=== PATIENT | female | born 1940 | race Caucasian/White ===

== ENCOUNTER 2018-05-07 13:47 | Outpatient (CLI) | payer MEDICARE, BC | END 2018-05-07 13:48 | disposition home or self-care (01) | LOC: BICMAMMO 13:47 | PROVIDERS: ATTEND Internal Medicine | DX: Z12.31 Encounter for screening mammogram for malignant neoplasm of breast (principal) | CPT/HCPCS: 77063; 77067 ==

== ENCOUNTER 2019-01-01 14:15 | Emergency (ER) | payer BC, MEDICARE ==
[~2019-01-01 14:15] MED LIST: ISOVUE-370 76%-LOCM 1 ML ONE
[2019-01-01] MEDS ORDERED: Fentanyl 100 MCG/2 ML VIAL ONE ×2 (16:17→16:50)
--- NOTE | 2019-01-01 16:58 | RAD ---
XR Shoulder Lt 3 View STANDARD HISTORY: Injury to shoulder COMPARISON: None. FINDINGS: The bones are demineralized. There is a minimally displaced distal clavicle fracture. Mild arthritic changes of the acromioclavicular and glenohumeral joints are noted. IMPRESSION: Distal clavicle fracture located just proximal to the AC joint.
[2019-01-01 17:01] LABS: #Eosinphils 0.1 thou/uL (0.0-0.7); #Lymphocytes 1.4 thou/uL (1.20-3.40); #Monocytes 0.8 thou/uL (0.11-0.59); #Neutrophils 10.3 thou/uL (1.40-6.50); %Basophils 0.2 % (0.0-1.0); %Eosinophils 0.5 % (0.0-10.0); %Lymphocytes 10.8 % (21.0-51.0); %Monocytes 6.1 % (0.0-10.0); %Neutrophils 82.4 % (42.0-75.0); Hemoglobin 14.3 g/dL (12.0-16.0); Mean Corpuscular HGB CONC 33.4 g/dL (32.0-36.0); Mean Corpuscular Hemoglobin 31.5 pg (27.0-31.0); Mean Corpuscular Volume 94.3 fL (78.0-98.0); Platelet Count 269 thou/uL (130-400); RBC Distribution Width 11.3 % (11.5-14.5); Red Blood Cell (RBC) Count 4.53 mill/uL (4.20-5.40); White Blood Cell (WBC) Count 12.5 thou/uL (4.8-10.8)
--- NOTE | 2019-01-01 17:15 | CT ---
CT BRAIN WITHOUT CONTRAST: Date: 01/01/19 INDICATION: History of fall with left-sided body pain. FINDINGS: There is a left frontal scalp contusion. There is mild chronic small vessel white matter ischemic change. No acute infarct, hemorrhage, or hydrocephalus is evident. Skull intact. Mastoid air cells on the lef t are clear. There is partial fusion of the right mastoid air cells. IMPRESSION: 1. Left frontal scalp contusion. 2. No acute intracranial abnormality. 3. Mild chronic small vessel white matter ischemic change. 4. Partial effusion of the right mastoid air cells. POS: BH
[2019-01-01 17:20] LABS: Albumin 4.1 g/dL (3.4-4.8)
[2019-01-01 17:22] LABS: Calcium 9.3 mg/dL (7.8-10.44); Chloride 99 mmol/L (98-107); Potassium 3.4 mmol/L (3.5-5.1); Sodium 135 mmol/L (136-145)
--- NOTE | 2019-01-01 17:22 | CT ---
CT CHEST AND ABDOMEN AND PELVIS WITH IV CONTRAST: Date: 01/01/19 INDICATION: History of fall with left-sided abdominal pain. FINDINGS: No focal contusion or pleural effusion is evident. There is a small, subcentimeter, linear nodule wit hin the right middle lobe adjacent to the right major fissure. There are areas of subsegmental volume loss involving both lower lobes. No pneumothorax is evident. There is mild ectasia of the ascending aorta measuring 2.8 cm. No definite solid organ injury is seen within the abdomen or pelvis. Gallbladder surgically absent. Unopacified large and small bowel are unremarkable appearing. No definite displaced rib fracture is evident. Mild superior end plate compression deformity of L2 is stable to comparison lumbar spine radiograph dated 12/08/14. There is scattered degenerative and ost eoarthritic change. IMPRESSION: 1. No definite acute traumatic injury seen involving chest, abdomen, or pelvis. 2. Small, subcentimeter, subpleural pulmonary nodule within the right lower lobe adjacent to the rig ht major fissure. 3. Remote appearing superior end plate compression deformity of L2. POS: BH
[2019-01-01 17:23] LABS: Globulin 2.8 g/dL (2.4-3.5); Glucose 100 mg/dL (83-110); Protein, Total 6.9 g/dL (6.0-8.3)
[2019-01-01 17:25] LABS: Anion Gap 15 mmol/L (10-20); Bilirubin, Total 0.5 mg/dL (0.2-1.2); Carbon Dioxide 24 mmol/L (23-31)
[2019-01-01 17:26] LABS: Alkaline Phosphatase 55 U/L (40-150)
[2019-01-01 17:27] LABS: BUN (Urea Nitrogen) 28 mg/dL (9.8-20.1); Calc. Creatinine Clearance 0 mL/min (70-130); Estimated GFR-MDRD 69
[2019-01-01 17:28] LABS: AST (SGOT) 41 U/L (5-34)
[2019-01-01 17:29] LABS: ALT (SGPT) 33 U/L (8-55)
[2019-01-01] MEDS ORDERED: Orphenadrine Citrate 60 MG/2 ML VIAL IM SCH (18:45)
[2019-01-01] MEDS ORDERED: HYDROcodone/Acetaminophen 5/325 mg Tablet ONE (21:51)
== END 2019-01-01 22:48 ==
LOC: ERS 14:15
DX: S42.032A Displaced fracture of lateral end of left clavicle, initial encounter for closed fracture (principal); S00.83XA Contusion of other part of head, initial encounter; E03.9 Hypothyroidism, unspecified; E78.5 Hyperlipidemia, unspecified; I10 Essential (primary) hypertension; Z79.899 Other long term (current) drug therapy; Z79.82 Long term (current) use of aspirin; W19.XXXA Unspecified fall, initial encounter
CPT/HCPCS: 36415; 70450; 71260; 74177; 80053; 85025; 96372; 96374; J2360; J3010; Q9966

== ENCOUNTER 2019-01-11 23:13 | Inpatient (IN) | payer MEDICARE ==
--- NOTE | 2019-01-11 23:53 | RAD ---
EXAM: Portable supine chest INDICATIONS: UTI, cellulitis, clavicle fracture COMPARISON: 01/11/2019 FINDINGS: Cardiomegaly is stable. Mild vascular engorgement is stable. Interstitial markings are prominent and stable. No infiltrate or acute process. No interval change. IMPRESSION: Stable chest findings
[2019-01-11 23:58] LABS: #Eosinphils 0.1 thou/uL (0.0-0.7); #Lymphocytes 0.4 thou/uL (1.20-3.40); #Monocytes 0.5 thou/uL (0.11-0.59); #Neutrophils 7.2 thou/uL (1.40-6.50); %Basophils 0.1 % (0.0-1.0); %Eosinophils 0.6 % (0.0-10.0); %Lymphocytes 4.9 % (21.0-51.0); %Neutrophils 88.4 % (42.0-75.0); Hemoglobin 11.4 g/dL (12.0-16.0); Mean Corpuscular HGB CONC 33.8 g/dL (32.0-36.0); Mean Corpuscular Volume 94.5 fL (78.0-98.0); Mean Platelet Volume 5.8 fL (7.4-10.4); Platelet Count 347 thou/uL (130-400); Red Blood Cell (RBC) Count 3.56 mill/uL (4.20-5.40); White Blood Cell (WBC) Count 8.2 thou/uL (4.8-10.8)
[2019-01-12 00:28] LABS: ALT (SGPT) 188 U/L (8-55); AST (SGOT) 286 U/L (5-34); Albumin 2.5 g/dL (3.4-4.8); Alkaline Phosphatase 122 U/L (40-150); Anion Gap 11 mmol/L (10-20); BUN (Urea Nitrogen) 15 mg/dL (9.8-20.1); Bilirubin, Total 0.3 mg/dL (0.2-1.2); CK (CPK) 17 U/L (29-168); Calc. Creatinine Clearance 0 mL/min (70-130); Calcium 7.3 mg/dL (7.8-10.44); Carbon Dioxide 27 mmol/L (23-31); Chloride 102 mmol/L (98-107); Estimated GFR-MDRD Greater than 90; Glucose 182 mg/dL (83-110); Potassium 3.4 mmol/L (3.5-5.1); Protein, Total 4.5 g/dL (6.0-8.3); Sodium 137 mmol/L (136-145)
[2019-01-12] MEDS ORDERED: Acetaminophen 325 MG TAB ONE (02:08)
[2019-01-12] MEDS ORDERED: Ondansetron ODT 4 MG TAB SL PRN (02:51)
[2019-01-12] MEDS ORDERED: Acetaminophen 325 MG TAB PO PRN ×2 (02:51→05:45)
[2019-01-12 03:25] VITALS: BMI 28.9
[2019-01-12] MEDS ORDERED: diphenhydrAMINE 25 MG CAP PO PRN (05:45)
[2019-01-12] MEDS ORDERED: Loperamide HCl 2 MG CAP PO PRN (05:45)
[2019-01-12] MEDS ORDERED: Bisacodyl 10 MG SUPP PR PRN (05:45)
[2019-01-12] MEDS ORDERED: Ondansetron ODT 4 MG TAB PO PRN (05:45)
[2019-01-12] MEDS ORDERED: traZODone HCl 50 MG TAB PO PRN (05:45)
[2019-01-12] MEDS ORDERED: Diabetic Tussin 200 MG/10 ML UDCUP PO PRN (05:45)
[2019-01-12] MEDS ORDERED: cloNIDine 0.1 MG TAB PO PRN (05:45)
[2019-01-12] MEDS ORDERED: tiZANidine HCl 4 MG TAB PO PRN (05:45)
[2019-01-12] MEDS ORDERED: Milk Of Magnesia 30 ML UDCUP PO PRN (05:45)
[2019-01-12] MEDS ORDERED: Cepastat Lozenges 1 LOZ PO PRN (05:45)
[2019-01-12] MEDS ORDERED: cefTRIAXone\\ROCEPHIN 1 GM in Sodium Chloride 0.9% 100 ML IVPB SCH (06:00)
[2019-01-12] MEDS: Levothyroxine Sodium 100 MCG TAB PO SCH (06:07)
[2019-01-12] MEDS: traMADol HCl 50 MG TAB PO PRN (06:14)
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
[2019-01-12] MEDS ORDERED: Hydrochlorothiazide 25 MG TAB PO SCH (09:00)
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
[2019-01-12] MEDS: Acetaminophen/Codeine 30-300mg Tablet PO SCH ×4 (09:51→21:30)
[2019-01-12] MEDS: tiZANidine HCl 4 MG TAB PO SCH (09:54)
[2019-01-12] MEDS: Aspirin 81 mg Enteric Coated Tablet PO SCH (09:54)
[2019-01-12] MEDS: Famotidine 20 MG TAB PO SCH (09:55)
[2019-01-12] MEDS: Calcium Carbonate + Vit D 1 TAB PO SCH ×2 (09:55→21:30)
[2019-01-12] MEDS: Multivitamin W/ Minerals 1 TAB PO SCH (09:55)
[2019-01-12] MEDS: Enoxaparin Sodium 40 MG/0.4 ML SYRINGE SC SCH (10:01)
[2019-01-12] MEDS: Polyethylene Glycol 3350 17 GM Packet PO SCH (10:04)
[2019-01-12 10:07] LABS: ALT (SGPT) 242 U/L (8-55); AST (SGOT) 270 U/L (5-34); Albumin 2.8 g/dL (3.4-4.8); Alkaline Phosphatase 175 U/L (40-150); Bilirubin, Direct 0.2 mg/dL (0.1-0.3); Bilirubin, Total 0.2 mg/dL (0.2-1.2); Protein, Total 5.9 g/dL (6.0-8.3)
[2019-01-12] MEDS ORDERED: ISOVUE-370 76%-LOCM 1 ML ONE (13:03)
[2019-01-12] MEDS ORDERED: Potassium Chloride 20 MEQ TAB PO SCH (13:15)
[2019-01-12] MEDS ORDERED: Vancomycin HCl 1.25 GM in Sodium Chloride 0.9% 250 ML 250 ML IVPB SCH (14:00)
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
[2019-01-12] MEDS: Oxacillin 2 GM in Sodium Chloride 0.9% 100 ML IVPB SCH ×2 (17:46→21:31)
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
[2019-01-12] MEDS: Ondansetron PF 4 MG/2 ML Vial IVP PRN (18:06)
[2019-01-12] MEDS: Atorvastatin Calcium 10 MG TAB PO SCH (21:30)
[2019-01-12] MEDS: Lidocaine Patch Removal 1 EACH TOP SCH (21:31)
[2019-01-13] MEDS: Oxacillin 2 GM in Sodium Chloride 0.9% 100 ML IVPB SCH ×5 (01:23→18:30)
[2019-01-13] MEDS: Levothyroxine Sodium 100 MCG TAB PO SCH (05:20)
[2019-01-13 06:16] LABS: #Eosinphils 0.3 thou/uL (0.0-0.7); #Lymphocytes 1.4 thou/uL (1.20-3.40); #Neutrophils 7.7 thou/uL (1.40-6.50); %Basophils 0.2 % (0.0-1.0); %Eosinophils 2.7 % (0.0-10.0); %Monocytes 9.2 % (0.0-10.0); Hemoglobin 11.2 g/dL (12.0-16.0); Mean Corpuscular HGB CONC 32.9 g/dL (32.0-36.0); Mean Corpuscular Hemoglobin 31.5 pg (27.0-31.0); Mean Corpuscular Volume 95.6 fL (78.0-98.0); Mean Platelet Volume 6.1 fL (7.4-10.4); Platelet Count 414 thou/uL (130-400); RBC Distribution Width 11.3 % (11.5-14.5); Red Blood Cell (RBC) Count 3.56 mill/uL (4.20-5.40); White Blood Cell (WBC) Count 10.3 thou/uL (4.8-10.8)
[2019-01-13 06:37] LABS: ALT (SGPT) 156 U/L (8-55); AST (SGOT) 115 U/L (5-34); Albumin 2.4 g/dL (3.4-4.8); Alkaline Phosphatase 187 U/L (40-150); Bilirubin, Direct 0.2 mg/dL (0.1-0.3); Bilirubin, Total 0.3 mg/dL (0.2-1.2); Protein, Total 5.4 g/dL (6.0-8.3)
[2019-01-13 06:47] LABS: Anion Gap 11 mmol/L (10-20); BUN (Urea Nitrogen) 10 mg/dL (9.8-20.1); Calc. Creatinine Clearance 86 mL/min (70-130); Calcium 8.6 mg/dL (7.8-10.44); Carbon Dioxide 26 mmol/L (23-31); Chloride 104 mmol/L (98-107); Estimated GFR-MDRD Greater than 90; Glucose 89 mg/dL (83-110); Potassium 4.2 mmol/L (3.5-5.1); Sodium 137 mmol/L (136-145)
[2019-01-13] MEDS ORDERED: Lidocaine 5% Patch TD SCH (09:00)
[2019-01-13] MEDS: Aspirin 81 mg Enteric Coated Tablet PO SCH (09:46)
[2019-01-13] MEDS: Multivitamin W/ Minerals 1 TAB PO SCH (09:46)
[2019-01-13] MEDS: Famotidine 20 MG TAB PO SCH (09:46)
[2019-01-13] MEDS: tiZANidine HCl 4 MG TAB PO SCH ×2 (09:46→21:15)
[2019-01-13] MEDS: Calcium Carbonate + Vit D 1 TAB PO SCH ×2 (09:46→21:15)
[2019-01-13] MEDS: Enoxaparin Sodium 40 MG/0.4 ML SYRINGE SC SCH (09:49)
[2019-01-13] MEDS: Polyethylene Glycol 3350 17 GM Packet PO SCH (09:49)
[2019-01-13] MEDS: Lidocaine 5% Patch TD SCH (09:49)
[2019-01-13] MEDS: Acetaminophen/Codeine 30-300mg Tablet PO SCH ×4 (09:52→21:21)
--- NOTE | 2019-01-13 11:46 | PDOC.HOSPP ---
- Subjective Subjective: Patient seen and examined. No new complaints. No overnight events - Objective Vital Signs & Weight: Vital Signs (12 hours) Temp Pulse Resp BP Pulse Ox 01/13/19 11:07 100.3 F H 76 18 112/71 93 L 01/13/19 07:21 99.5 F 89 16 146/82 H 98 01/13/19 04:20 98.8 F 91 16 139/83 99 Weight Weight 148 lb 2.41 oz Most Recent Monitor Data Heart Rate from ECG 82 NIBP 131/72 NIBP BP-Mean 91 Respiration from ECG 24 SpO2 98 I&O: 01/12/19 01/13/19 01/14/19 06:59 06:59 06:59 Intake Total 500 1800 Output Total 400 1900 Balance 100 -100 Result Diagrams: 01/13/19 05:51 01/13/19 05:51 ROS - Review of Systems All systems: All other ROS were reviewed and found negative. ENT: denies: ear pain, ear discharge, nose pain, nose discharge, nose congestion , mouth pain, mouth swelling, throat pain, throat swelling, other Respiratory: denies: cough, dry, shortness of breath, hemoptysis, SOB with excertion, pleuritic pain, sputum, wheezing, other Cardiovascular: denies: chest pain, palpitations, orthopnea, paroxysmal noc. dyspnea, edema, light headedness, other Gastrointestinal: denies: nausea, vomitting, abdominal pain, diarrhea, constipation, melena, hematochezia, other Genitourinary: denies: dysuria, frequency, incontinence, hematuria, retention, other Musculoskeletal: denies: neck pain, shoulder pain, arm pain, back pain, hand pain, leg pain, foot pain, other - Medication Medications: Active Medications Generic Name Dose Route Start Last Admin Trade Name Freq PRN Reason Stop Dose Admin Acetaminophen/Codeine Phosphate 1 tab 01/12/19 09:00 01/13/19 09:52 Tylenol #3 PO 1 tab QID GWEN Administration Aspirin 81 mg 01/12/19 09:00 01/13/19 09:46 Ecotrin PO 81 mg DAILY GWEN Administration Atorvastatin Calcium 10 mg 01/12/19 21:00 01/12/19 21:30 Lipitor PO 10 mg HS GWEN Administration Calcium/Vitamin D 1 tab 01/12/19 09:00 01/13/19 09:46 Caltrate 600 + Vit D PO 1 tab BID GWEN Administration Enoxaparin Sodium 40 mg 01/12/19 09:00 01/13/19 09:49 Lovenox SC 40 mg 0900 GWEN Administration Famotidine 20 mg 01/12/19 09:00 01/13/19 09:46 Pepcid PO 20 mg DAILY GWEN Administration Oxacillin Sodium 2 gm/ Sodium 100 mls @ 200 mls/hr 01/12/19 17:00 01/13/19 09 :42 Chloride IVPB 100 mls Q4HR GWEN Administration Iron/Minerals/Multivitamins 1 tab 01/12/19 09:00 01/13/19 09:46 Theragran M PO 1 tab DAILY GWEN Administration Levothyroxine Sodium 100 mcg 01/12/19 06:00 01/13/19 05:20 Synthroid PO 100 mcg 0600 GWEN Administration Lidocaine 1 patch 01/13/19 09:00 01/13/19 09:49 Lidoderm 5% Patch TD 1 patch DAILY GWEN Administration Miscellaneous Medication 1 each 01/12/19 21:00 01/12/19 21:31 Lidocaine Patch Removal TOP 1 each 2100 GWEN Administration Ondansetron HCl 4 mg 01/12/19 02:51 01/12/19 18:06 Zofran IVP 01/17/19 13:00 4 mg Q6H PRN Administration Nausea/Vomiting Polyethylene Glycol 17 gm 01/12/19 09:00 01/13/19 09:49 Miralax PO 17 gm DAILY GWEN Administration Tramadol HCl 50 mg 01/12/19 05:45 01/12/19 06:14 Ultram PO 50 mg Q4HR PRN Administration Pain - Exam NAD, awake alert Eye: PERRL, anicteric sclera ENT: normocephalic atraumatic, no oropharyngeal lesions Neck: supple, symmetric, no JVD Heart: RRR, no murmur, no gallops Respiratory: no wheezes, no rales, no ronchi Gastrointestinal: soft, non-tender, non-distended Extremities: no cyanosis, no clubbing, no edema Skin: normal turgor Neurological: CN's grossly intact, normal sensation to touch Musculoskeletal: normal tone, normal strength, no muscle wasting Psychiatric: normal affect, normal behavior Hosp A/P (1) Abnormal LFTs Code(s): R94.5 - ABNORMAL RESULTS OF LIVER FUNCTION STUDIES Status: Acute (2) Bacteremia due to Staphylococcus aureus Code(s): R78.81 - BACTEREMIA Status: Acute (3) Clavicle fracture Code(s): S42.009A - FRACTURE OF UNSP PART OF UNSP CLAVICLE, INIT FOR CLOS FX Status: Acute (4) H/O thrombophlebitis Code(s): Z86.72 - PERSONAL HISTORY OF THROMBOPHLEBITIS Status: Acute (5) Sepsis Code(s): A41.9 - SEPSIS, UNSPECIFIED ORGANISM Status: Acute (6) UTI (urinary tract infection) Status: Acute (7) Hypertension Code(s): I10 - ESSENTIAL (PRIMARY) HYPERTENSION Status: Chronic - Plan old records reviewed/req, continue antibiotics, PT/OT, social professionals continue oxacillin follow culture will get MRI LS spine to rule out discitis/osteomyelitis duration and selection of antibiotics will defer to ID medication reviewed as below symptomatic treatment add toradol for pain add zanaflex for back spasm
[2019-01-13] MEDS ORDERED: Vancomycin HCl 1 GM in Premix Bag 1 BAG IVPB SCH (14:00)
[2019-01-13] MEDS ORDERED: Lorazepam 2 MG/ML VIAL SLOW IVP PRN (14:50)
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
[2019-01-13] MEDS: Ketorolac Tromethamine 30 MG/ML VIAL IVP PRN (16:26)
--- NOTE | 2019-01-13 18:21 | MRI ---
MRI LUMBAR SPINE WITH AND WITHOUT CONTRAST: 01/13/19 INDICATIONS: Back pain. Recent injury. Question osteomyelitis. Bacteremia. Correlation made to recent CT chest, abdomen and pelvis which showed areas of infiltrate in the lung landa suggesting pneumonia. FINDINGS: The visualized vertebral bodies maintain height. There is abnormal signal with edema and enhancement involving the T12 vertebra, L1 vertebra and linear enhancement in the inferior aspect of the L3 verte bra. There is mild loss of height and superior end plate deformities to the right of midline involvi ng T12 and L1. Correlation made to CT scan demonstrates no lytic or blastic process. There is minimal enhancement in the superior end plate of L5. There is a hemangioma involving the L2 vertebra. There is slight anterolisthesis at L4-5. No significant disc bulge seen at T12-L1. At L1-2, mild disc bulge mildly flattens the anterior thecal sac. No central canal stenosis. No significant disc bulge at L2-3 or L3-4. At L4-5, slight anterolisthesis with mild diffuse disc bulge flattening the thecal sac. Facet arthros is. Very mild central canal stenosis. At L5-S1, diffuse disc bulge centrally mildly indents the anterior thecal sac. Facet arthrosis. No ce ntral canal or foraminal stenosis. IMPRESSION: Abnormal signal with enhancement involving the T12 and L1 vertebra. Evidence of superior end plate in jury involving both of these vertebra to the right of midline. Linear enhancement involving the L3 ve rtebra suggests probable fracture. No significant compression or loss of height at this time. The abn ormal signal seen may represent edema due to injury given history of recent trauma. Osteomyelitis can not be completely excluded given the diffuse enhancement at T12 and L1. There is no evidence of disci tis. Fracture with injury is favored. Continued close follow-up is recommended. POS: OFF
[2019-01-13] MEDS ORDERED: Acetaminophen/Codeine 30-300mg Tablet PO SCH (19:00)
[2019-01-13] MEDS: Lidocaine Patch Removal 1 EACH TOP SCH (21:16)
[2019-01-13] MEDS: Atorvastatin Calcium 10 MG TAB PO SCH (21:16)
[2019-01-14] MEDS: Oxacillin 2 GM in Sodium Chloride 0.9% 100 ML IVPB SCH ×6 (01:28→21:12)
[2019-01-14] MEDS: Acetaminophen/Codeine 30-300mg Tablet PO SCH ×4 (04:20→21:01)
[2019-01-14] MEDS: tiZANidine HCl 4 MG TAB PO PRN (04:53)
[2019-01-14] MEDS: Levothyroxine Sodium 100 MCG TAB PO SCH (04:53)
[2019-01-14] MEDS: Enoxaparin Sodium 40 MG/0.4 ML SYRINGE SC SCH (10:32)
[2019-01-14] MEDS: Famotidine 20 MG TAB PO SCH (10:32)
[2019-01-14] MEDS: Aspirin 81 mg Enteric Coated Tablet PO SCH (10:32)
[2019-01-14] MEDS: Calcium Carbonate + Vit D 1 TAB PO SCH ×2 (10:33→21:01)
[2019-01-14] MEDS: Polyethylene Glycol 3350 17 GM Packet PO SCH (10:33)
[2019-01-14] MEDS: tiZANidine HCl 4 MG TAB PO SCH ×2 (10:33→21:01)
[2019-01-14] MEDS: Lidocaine 5% Patch TD SCH (10:33)
[2019-01-14] MEDS: Multivitamin W/ Minerals 1 TAB PO SCH (10:33)
--- NOTE | 2019-01-14 12:20 | PDOC.HOSPP ---
- Subjective Subjective: Patient seen and examined. No new complaints. No overnight events pt has back pain - Objective Vital Signs & Weight: Vital Signs (12 hours) Temp Pulse Resp BP Pulse Ox 01/14/19 12:15 98.9 F 84 18 142/63 H 93 L 01/14/19 08:08 98.5 F 80 18 144/76 H 96 Weight Weight 148 lb 2.41 oz Most Recent Monitor Data Heart Rate from ECG 82 NIBP 131/72 NIBP BP-Mean 91 Respiration from ECG 24 SpO2 98 I&O: 01/13/19 01/14/19 01/15/19 06:59 06:59 06:59 Intake Total 1800 750 Output Total 1900 600 Balance -100 150 Result Diagrams: 01/13/19 05:51 01/13/19 05:51 ROS - Review of Systems All systems: All other ROS were reviewed and found negative. Constitutional: reports: fever. denies: chills, sweats, weakness, malaise, other ENT: denies: ear pain, ear discharge, nose pain, nose discharge, nose congestion , mouth pain, mouth swelling, throat pain, throat swelling, other Respiratory: denies: cough, dry, shortness of breath, hemoptysis, SOB with excertion, pleuritic pain, sputum, wheezing, other Cardiovascular: denies: chest pain, palpitations, orthopnea, paroxysmal noc. dyspnea, edema, light headedness, other Gastrointestinal: denies: nausea, vomitting, abdominal pain, diarrhea, constipation, melena, hematochezia, other Genitourinary: denies: dysuria, frequency, incontinence, hematuria, retention, other Musculoskeletal: reports: back pain. denies: neck pain, shoulder pain, arm pain , hand pain, leg pain, foot pain, other Skin: denies: rash, lesions, jose antonio, bruising, other - Medication Medications: Active Medications Generic Name Dose Route Start Last Admin Trade Name Freq PRN Reason Stop Dose Admin Acetaminophen/Codeine Phosphate 1 tab 01/13/19 21:00 01/14/19 10:32 Tylenol #3 PO 1 tab 0300,0900,1500,2100 GWEN Administration Aspirin 81 mg 01/12/19 09:00 01/14/19 10:32 Ecotrin PO 81 mg DAILY GWEN Administration Atorvastatin Calcium 10 mg 01/12/19 21:00 01/13/19 21:16 Lipitor PO 10 mg HS GWEN Administration Calcium/Vitamin D 1 tab 01/12/19 09:00 01/14/19 10:33 Caltrate 600 + Vit D PO 1 tab BID GWEN Administration Enoxaparin Sodium 40 mg 01/12/19 09:00 01/14/19 10:32 Lovenox SC 40 mg 0900 GWEN Administration Famotidine 20 mg 01/12/19 09:00 01/14/19 10:32 Pepcid PO 20 mg DAILY GWEN Administration Oxacillin Sodium 2 gm/ Sodium 100 mls @ 200 mls/hr 01/12/19 17:00 01/14/19 10 :31 Chloride IVPB 100 mls Q4HR GWEN Administration Iron/Minerals/Multivitamins 1 tab 01/12/19 09:00 01/14/19 10:33 Theragran M PO 1 tab DAILY GWEN Administration Ketorolac Tromethamine 15 mg 01/13/19 10:56 01/13/19 16:26 Toradol IVP 01/18/19 10:57 15 mg Q6H PRN Administration Pain Levothyroxine Sodium 100 mcg 01/12/19 06:00 01/14/19 04:53 Synthroid PO 100 mcg 0600 [facility] Administration Lidocaine 1 patch 01/13/19 09:00 01/14/19 10:33 Lidoderm 5% Patch TD 1 patch DAILY GWEN Administration Lorazepam 1 mg 01/13/19 14:50 01/13/19 16:30 Ativan SLOW IVP 01/14/19 14:51 1 mg ONE PRN Administration .ANXIETY FOR MRI Miscellaneous Medication 1 each 01/12/19 21:00 01/13/19 21:16 Lidocaine Patch Removal TOP Not Given 2100 [facility] Ondansetron HCl 4 mg 01/12/19 02:51 01/12/19 18:06 Zofran IVP 01/17/19 13:00 4 mg Q6H PRN Administration Nausea/Vomiting Polyethylene Glycol 17 gm 01/12/19 09:00 01/14/19 10:33 Miralax PO Not Given DAILY [facility] Tizanidine HCl 4 mg 01/13/19 21:00 01/14/19 10:33 Zanaflex PO 4 mg BID GWEN Administration Tizanidine HCl 2 mg 01/13/19 10:57 01/14/19 04:53 Zanaflex PO 2 mg Q6HR PRN Administration Muscle Spasm Tramadol HCl 50 mg 01/12/19 05:45 01/12/19 06:14 Ultram PO 50 mg Q4HR PRN Administration Pain - Exam NAD, awake alert Eye: PERRL ENT: normocephalic atraumatic, no oropharyngeal lesions Neck: supple, symmetric, no JVD Heart: RRR, no murmur, no gallops, no rubs Respiratory: CTAB, no wheezes, no rales, no ronchi Gastrointestinal: soft, non-tender, non-distended Extremities: no cyanosis, no clubbing, no edema Skin: normal turgor, no lesions Neurological: CN's grossly intact, no focal deficits Musculoskeletal: normal tone, normal strength Hosp A/P (1) Sepsis Code(s): A41.9 - SEPSIS, UNSPECIFIED ORGANISM Status: Acute (2) Bacteremia due to Staphylococcus aureus Code(s): R78.81 - BACTEREMIA Status: Acute (3) Abnormal LFTs Code(s): R94.5 - ABNORMAL RESULTS OF LIVER FUNCTION STUDIES Status: Acute (4) Clavicle fracture Code(s): S42.009A - FRACTURE OF UNSP PART OF UNSP CLAVICLE, INIT FOR CLOS FX Status: Acute (5) H/O thrombophlebitis Code(s): Z86.72 - PERSONAL HISTORY OF THROMBOPHLEBITIS Status: Acute (6) UTI (urinary tract infection) Status: Acute (7) Hypertension Code(s): I10 - ESSENTIAL (PRIMARY) HYPERTENSION Status: Chronic - Plan old records reviewed/req, plan discussed w/ family, continue antibiotics, PT/OT , social media campaign manager continue oxacillin MRI reported probable fracture T12, will consult neurosurgery for that ? need for brace medication reviewed as below symptomatic treatment start PT discharge planning antibiotic and duration will defer to ID
[2019-01-14 13:43] LABS: Vancomycin, Trough Less than 1.1 ug/mL
[2019-01-14] MEDS: Atorvastatin Calcium 10 MG TAB PO SCH (21:01)
[2019-01-14] MEDS: Lidocaine Patch Removal 1 EACH TOP SCH (21:02)
[2019-01-15] MEDS: Oxacillin 2 GM in Sodium Chloride 0.9% 100 ML IVPB SCH ×6 (00:46→20:39)
[2019-01-15] MEDS: Acetaminophen/Codeine 30-300mg Tablet PO SCH ×4 (03:46→20:39)
[2019-01-15] MEDS: Levothyroxine Sodium 100 MCG TAB PO SCH (04:49)
[2019-01-15 06:31] LABS: #Eosinphils 0.2 thou/uL (0.0-0.7); #Lymphocytes 1.5 thou/uL (1.20-3.40); #Monocytes 0.8 thou/uL (0.11-0.59); #Neutrophils 4.8 thou/uL (1.40-6.50); %Basophils 0.4 % (0.0-1.0); %Eosinophils 2.3 % (0.0-10.0); %Lymphocytes 20.8 % (21.0-51.0); %Monocytes 11.1 % (0.0-10.0); %Neutrophils 65.4 % (42.0-75.0); Mean Corpuscular HGB CONC 33.4 g/dL (32.0-36.0); Mean Corpuscular Hemoglobin 31.4 pg (27.0-31.0); Mean Corpuscular Volume 94.1 fL (78.0-98.0); Mean Platelet Volume 5.5 fL (7.4-10.4); Platelet Count 482 thou/uL (130-400); RBC Distribution Width 11.2 % (11.5-14.5); Red Blood Cell (RBC) Count 4.12 mill/uL (4.20-5.40); White Blood Cell (WBC) Count 7.3 thou/uL (4.8-10.8)
[2019-01-15 06:54] LABS: ALT (SGPT) 89 U/L (8-55); AST (SGOT) 52 U/L (5-34); Albumin 2.6 g/dL (3.4-4.8); Alkaline Phosphatase 235 U/L (40-150); Anion Gap 12 mmol/L (10-20); BUN (Urea Nitrogen) 13 mg/dL (9.8-20.1); Bilirubin, Total 0.4 mg/dL (0.2-1.2); Calc. Creatinine Clearance 79 mL/min (70-130); Calcium 8.7 mg/dL (7.8-10.44); Carbon Dioxide 26 mmol/L (23-31); Chloride 102 mmol/L (98-107); Estimated GFR-MDRD Greater than 90; Globulin 3.3 g/dL (2.4-3.5); Glucose 93 mg/dL (83-110); Potassium 3.6 mmol/L (3.5-5.1); Protein, Total 5.9 g/dL (6.0-8.3); Sodium 136 mmol/L (136-145)
[2019-01-15] MEDS: Enoxaparin Sodium 40 MG/0.4 ML SYRINGE SC SCH (09:32)
[2019-01-15] MEDS: Calcium Carbonate + Vit D 1 TAB PO SCH ×2 (09:32→20:39)
[2019-01-15] MEDS: Polyethylene Glycol 3350 17 GM Packet PO SCH (09:33)
[2019-01-15] MEDS: Aspirin 81 mg Enteric Coated Tablet PO SCH (09:33)
[2019-01-15] MEDS: Lidocaine 5% Patch TD SCH (09:33)
[2019-01-15] MEDS: Multivitamin W/ Minerals 1 TAB PO SCH (09:33)
[2019-01-15] MEDS: Famotidine 20 MG TAB PO SCH (09:33)
[2019-01-15] MEDS: tiZANidine HCl 4 MG TAB PO SCH ×2 (09:33→20:38)
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
[2019-01-15] MEDS: Ketorolac Tromethamine 30 MG/ML VIAL IVP PRN (13:33)
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
[2019-01-15] MEDS: Lidocaine Patch Removal 1 EACH TOP SCH (20:39)
[2019-01-15] MEDS: Atorvastatin Calcium 10 MG TAB PO SCH (20:39)
[2019-01-16] MEDS: Oxacillin 2 GM in Sodium Chloride 0.9% 100 ML IVPB SCH ×6 (00:58→20:46)
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
[2019-01-16] MEDS: Acetaminophen/Codeine 30-300mg Tablet PO SCH ×4 (04:10→20:45)
[2019-01-16] MEDS: Levothyroxine Sodium 100 MCG TAB PO SCH (05:20)
[2019-01-16] MEDS: Famotidine 20 MG TAB PO SCH (09:05)
[2019-01-16] MEDS: Aspirin 81 mg Enteric Coated Tablet PO SCH (09:06)
[2019-01-16] MEDS: Calcium Carbonate + Vit D 1 TAB PO SCH ×2 (09:06→20:46)
[2019-01-16] MEDS: Multivitamin W/ Minerals 1 TAB PO SCH (09:06)
[2019-01-16] MEDS: tiZANidine HCl 4 MG TAB PO SCH ×2 (09:06→20:46)
[2019-01-16] MEDS: Lidocaine 5% Patch TD SCH (09:08)
[2019-01-16] MEDS: Enoxaparin Sodium 40 MG/0.4 ML SYRINGE SC SCH (09:08)
[2019-01-16] MEDS: Polyethylene Glycol 3350 17 GM Packet PO SCH (09:10)
[2019-01-16] MEDS: Ketorolac Tromethamine 30 MG/ML VIAL IVP PRN (13:30)
[2019-01-16] MEDS ORDERED: Amlodipine 5 MG TAB PO SCH (15:00)
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
--- NOTE | 2019-01-16 15:30 | PDOC.HOSPP ---
- Subjective Subjective: Admitted from inpatient rehab for further evaluation of sepsis. Found to have right antecubital fossa septic thrombophelitis with MSSA bacteremia. improving. Still unable to ambulate. No more fevers. - Objective Vital Signs & Weight: Vital Signs (12 hours) Temp Pulse Resp BP Pulse Ox 01/16/19 08:00 94 L 01/16/19 07:24 98.4 F 75 16 159/81 H 94 L Weight Weight 148 lb 2.41 oz Most Recent Monitor Data Heart Rate from ECG 82 NIBP 131/72 NIBP BP-Mean 91 Respiration from ECG 24 SpO2 98 I&O: 01/15/19 01/16/19 01/17/19 06:59 06:59 06:59 Intake Total 960 Output Total 1100 Balance -140 Result Diagrams: 01/15/19 06:07 01/15/19 06:07 ROS - Review of Systems All systems: All other ROS were reviewed and found negative. - Medication Medications: Active Medications Generic Name Dose Route Start Last Admin Trade Name Freq PRN Reason Stop Dose Admin Acetaminophen/Codeine Phosphate 1 tab 01/13/19 21:00 01/16/19 14:51 Tylenol #3 PO 1 tab 0300,0900,1500,2100 GWEN Administration Aspirin 81 mg 01/12/19 09:00 01/16/19 09:06 Ecotrin PO 81 mg DAILY GWEN Administration Atorvastatin Calcium 10 mg 01/12/19 21:00 01/15/19 20:39 Lipitor PO 10 mg HS GWEN Administration Calcium/Vitamin D 1 tab 01/12/19 09:00 01/16/19 09:06 Caltrate 600 + Vit D PO 1 tab BID GWEN Administration Enoxaparin Sodium 40 mg 01/12/19 09:00 01/16/19 09:08 Lovenox SC 40 mg 0900 GWEN Administration Famotidine 20 mg 01/12/19 09:00 01/16/19 09:05 Pepcid PO 20 mg DAILY GWEN Administration Oxacillin Sodium 2 gm/ Sodium 100 mls @ 200 mls/hr 01/12/19 17:00 01/16/19 13 :16 Chloride IVPB 100 mls Q4HR GWEN Administration Iron/Minerals/Multivitamins 1 tab 01/12/19 09:00 01/16/19 09:06 Theragran M PO 1 tab DAILY GWEN Administration Ketorolac Tromethamine 15 mg 01/13/19 10:56 01/16/19 13:30 Toradol IVP 01/18/19 10:57 15 mg Q6H PRN Administration Pain Levothyroxine Sodium 100 mcg 01/12/19 06:00 01/16/19 05:20 Synthroid PO 100 mcg 0600 GWEN Administration Lidocaine 1 patch 01/13/19 09:00 01/16/19 09:08 Lidoderm 5% Patch TD 1 patch DAILY GWEN Administration Miscellaneous Medication 1 each 01/12/19 21:00 01/15/19 20:39 Lidocaine Patch Removal TOP Not Given 2100 GWEN Ondansetron HCl 4 mg 01/12/19 02:51 01/12/19 18:06 Zofran IVP 01/17/19 13:00 4 mg Q6H PRN Administration Nausea/Vomiting Polyethylene Glycol 17 gm 01/12/19 09:00 01/16/19 09:10 Miralax PO Not Given DAILY GWEN Tizanidine HCl 4 mg 01/13/19 21:00 01/16/19 09:06 Zanaflex PO 4 mg BID GWEN Administration Tizanidine HCl 2 mg 01/13/19 10:57 01/14/19 04:53 Zanaflex PO 2 mg Q6HR PRN Administration Muscle Spasm Tramadol HCl 50 mg 01/12/19 05:45 01/12/19 06:14 Ultram PO 50 mg Q4HR PRN Administration Pain - Exam NAD, awake alert Eye: PERRL, anicteric sclera ENT: normocephalic atraumatic, moist mucosa Neck: supple, symmetric, no JVD Heart: RRR, normal peripheral pulses (systolic murmur noted), murmur present Respiratory: no wheezes, no rales, no ronchi Gastrointestinal: soft, non-tender, non-distended, normal bowel sounds Extremities: no cyanosis (Trace bilateral leg edema. right antecubital fossa dressing noted), no clubbing Neurological: CN's grossly intact (moving all limbs but weakly) Hosp A/P (1) Thrombophlebitis of arm Code(s): I80.8 - PHLEBITIS AND THROMBOPHLEBITIS OF OTHER SITES Status: Acute (2) Diastolic dysfunction Code(s): I51.89 - OTHER ILL-DEFINED HEART DISEASES Status: Acute (3) Moderate mitral regurgitation Code(s): I34.0 - NONRHEUMATIC MITRAL (VALVE) INSUFFICIENCY Status: Acute (4) T12 compression fracture Code(s): S22.080A - WEDGE COMPRESSION FRACTURE OF T11-T12 VERTEBRA, INIT Status: Acute (5) Back pain Code(s): M54.9 - DORSALGIA, UNSPECIFIED Status: Acute (6) Clavicle fracture Code(s): S42.009A - FRACTURE OF UNSP PART OF UNSP CLAVICLE, INIT FOR CLOS FX Status: Acute (7) Sepsis Code(s): A41.9 - SEPSIS, UNSPECIFIED ORGANISM Status: Acute (8) UTI (urinary tract infection) Status: Acute (9) Hypertension Code(s): I10 - ESSENTIAL (PRIMARY) HYPERTENSION Status: Chronic (10) Abnormal LFTs Code(s): R94.5 - ABNORMAL RESULTS OF LIVER FUNCTION STUDIES Status: Acute (11) Bacteremia due to Staphylococcus aureus Code(s): R78.81 - BACTEREMIA Status: Acute - Plan Start amlodipine for HTN Continue current antibiotics. Continue analgesic. TLSO brace to continue as well as PT/OT
[2019-01-16] MEDS: Ondansetron PF 4 MG/2 ML Vial IVP PRN (19:16)
[2019-01-16] MEDS: Atorvastatin Calcium 10 MG TAB PO SCH (20:46)
[2019-01-16] MEDS: Lidocaine Patch Removal 1 EACH TOP SCH (20:46)
[2019-01-17] MEDS: Oxacillin 2 GM in Sodium Chloride 0.9% 100 ML IVPB SCH ×4 (00:05→12:42)
[2019-01-17] MEDS: Acetaminophen/Codeine 30-300mg Tablet PO SCH ×4 (02:18→20:38)
[2019-01-17] MEDS: Levothyroxine Sodium 100 MCG TAB PO SCH (05:12)
[2019-01-17] MEDS: Calcium Carbonate + Vit D 1 TAB PO SCH ×2 (07:49→20:38)
[2019-01-17] MEDS: Aspirin 81 mg Enteric Coated Tablet PO SCH (07:49)
[2019-01-17] MEDS: Famotidine 20 MG TAB PO SCH (07:50)
[2019-01-17] MEDS: Multivitamin W/ Minerals 1 TAB PO SCH (07:50)
[2019-01-17] MEDS: Enoxaparin Sodium 40 MG/0.4 ML SYRINGE SC SCH (07:50)
[2019-01-17] MEDS: tiZANidine HCl 4 MG TAB PO SCH ×2 (07:50→20:38)
[2019-01-17] MEDS: Polyethylene Glycol 3350 17 GM Packet PO SCH (07:51)
[2019-01-17] MEDS ORDERED: Amlodipine 5 MG TAB PO SCH ×2 (09:00→12:15)
[2019-01-17] MEDS: Lidocaine 5% Patch TD SCH (09:50)
--- NOTE | 2019-01-17 12:16 | PDOC.HOSPP ---
- Subjective Subjective: Admitted from inpatient rehab for further evaluation and treatment of sepsis. Found to have right antecubital fossa septic thrombophelitis with MSSA bacteremia and started on appropriate antibiotics with improvement. Still having back pain/spasm. Still unable to ambulate. No more fevers. - Objective Vital Signs & Weight: Vital Signs (12 hours) Temp Pulse Resp BP BP Pulse Ox 01/17/19 07:58 98.5 F 76 18 160/84 H 93 L 01/17/19 07:56 78 160/84 H 01/17/19 07:51 93 L Weight Weight 148 lb 2.41 oz Most Recent Monitor Data Heart Rate from ECG 82 NIBP 131/72 NIBP BP-Mean 91 Respiration from ECG 24 SpO2 98 I&O: 01/16/19 01/17/19 01/18/19 06:59 06:59 06:59 Intake Total 960 480 Output Total 1100 Balance -140 480 Result Diagrams: 01/15/19 06:07 01/15/19 06:07 ROS - Review of Systems All systems: All other ROS were reviewed and found negative. - Medication Medications: Active Medications Generic Name Dose Route Start Last Admin Trade Name Freq PRN Reason Stop Dose Admin Acetaminophen/Codeine Phosphate 1 tab 01/13/19 21:00 01/17/19 07:51 Tylenol #3 PO 1 tab 0300,0900,1500,2100 GWEN Administration Aspirin 81 mg 01/12/19 09:00 01/17/19 07:49 Ecotrin PO 81 mg DAILY GWEN Administration Atorvastatin Calcium 10 mg 01/12/19 21:00 01/16/19 20:46 Lipitor PO 10 mg HS GWEN Administration Calcium/Vitamin D 1 tab 01/12/19 09:00 01/17/19 07:49 Caltrate 600 + Vit D PO 1 tab BID GWEN Administration Enoxaparin Sodium 40 mg 01/12/19 09:00 01/17/19 07:50 Lovenox SC 40 mg 0900 GWEN Administration Famotidine 20 mg 01/12/19 09:00 01/17/19 07:50 Pepcid PO 20 mg DAILY GWNE Administration Oxacillin Sodium 2 gm/ Sodium 100 mls @ 200 mls/hr 01/12/19 17:00 01/17/19 09 :50 Chloride IVPB 100 mls Q4HR GWEN Administration Iron/Minerals/Multivitamins 1 tab 01/12/19 09:00 01/17/19 07:50 Theragran M PO 1 tab DAILY GWEN Administration Ketorolac Tromethamine 15 mg 01/13/19 10:56 01/16/19 13:30 Toradol IVP 01/18/19 10:57 15 mg Q6H PRN Administration Pain Levothyroxine Sodium 100 mcg 01/12/19 06:00 01/17/19 05:12 Synthroid PO 100 mcg 0600 GWEN Administration Lidocaine 1 patch 01/13/19 09:00 01/17/19 09:50 Lidoderm 5% Patch TD 1 patch DAILY GWEN Administration Miscellaneous Medication 1 each 01/12/19 21:00 01/16/19 20:46 Lidocaine Patch Removal TOP Not Given 2100 GWEN Ondansetron HCl 4 mg 01/12/19 02:51 01/16/19 19:16 Zofran IVP 01/17/19 13:00 4 mg Q6H PRN Administration Nausea/Vomiting Polyethylene Glycol 17 gm 01/12/19 09:00 01/17/19 07:51 Miralax PO Not Given DAILY GWEN Tizanidine HCl 4 mg 01/13/19 21:00 01/17/19 07:50 Zanaflex PO 4 mg BID GWEN Administration Tizanidine HCl 2 mg 01/13/19 10:57 01/14/19 04:53 Zanaflex PO 2 mg Q6HR PRN Administration Muscle Spasm Tramadol HCl 50 mg 01/12/19 05:45 01/12/19 06:14 Ultram PO 50 mg Q4HR PRN Administration Pain - Exam awake alert Eye: PERRL ENT: moist mucosa (Left periorbital echymosis/bruise noted.) Neck: supple Heart: RRR Respiratory: no wheezes, no rales (ir air entry bilaterally) Gastrointestinal: soft, non-tender, non-distended, normal bowel sounds Extremities: no cyanosis, 1+ LE edema Neurological: CN's grossly intact, no focal deficits Psychiatric: A&O x 3 Hosp A/P (1) Bacteremia due to Staphylococcus aureus Code(s): R78.81 - BACTEREMIA Status: Acute (2) Thrombophlebitis of arm Code(s): I80.8 - PHLEBITIS AND THROMBOPHLEBITIS OF OTHER SITES Status: Acute (3) Diastolic dysfunction Code(s): I51.89 - OTHER ILL-DEFINED HEART DISEASES Status: Acute (4) Moderate mitral regurgitation Code(s): I34.0 - NONRHEUMATIC MITRAL (VALVE) INSUFFICIENCY Status: Acute (5) T12 compression fracture Code(s): S22.080A - WEDGE COMPRESSION FRACTURE OF T11-T12 VERTEBRA, INIT Status: Acute (6) Back pain Code(s): M54.9 - DORSALGIA, UNSPECIFIED Status: Acute (7) Clavicle fracture Code(s): S42.009A - FRACTURE OF UNSP PART OF UNSP CLAVICLE, INIT FOR CLOS FX Status: Acute (8) Sepsis Code(s): A41.9 - SEPSIS, UNSPECIFIED ORGANISM Status: Acute (9) UTI (urinary tract infection) Status: Acute (10) Hypertension Code(s): I10 - ESSENTIAL (PRIMARY) HYPERTENSION Status: Chronic (11) Abnormal LFTs Code(s): R94.5 - ABNORMAL RESULTS OF LIVER FUNCTION STUDIES Status: Acute - Plan increase amlodipine to 10 mg daily to get better BP control. Continue Current antibiotics, Continue PT/Ot. Get CBC and BMP in the am.
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
[2019-01-17] MEDS: Atorvastatin Calcium 10 MG TAB PO SCH (20:38)
[2019-01-17] MEDS ORDERED: CEFAZOLIN 2 GM, Admixture Fee 1 EACH in Sodium Chloride 0.9% 100 ML IVPB SCH (22:00)
[2019-01-17] MEDS: Lidocaine Patch Removal 1 EACH TOP SCH (23:40)
[2019-01-18] MEDS: Acetaminophen/Codeine 30-300mg Tablet PO SCH ×4 (03:44→20:34)
[2019-01-18 05:24] LABS: #Eosinphils 0.4 thou/uL (0.0-0.7); #Lymphocytes 2.1 thou/uL (1.20-3.40); #Monocytes 0.6 thou/uL (0.11-0.59); #Neutrophils 5.4 thou/uL (1.40-6.50); %Basophils 0.3 % (0.0-1.0); %Eosinophils 4.4 % (0.0-10.0); %Lymphocytes 24.6 % (21.0-51.0); %Monocytes 7.2 % (0.0-10.0); %Neutrophils 63.5 % (42.0-75.0); Hemoglobin 12.5 g/dL (12.0-16.0); Mean Corpuscular HGB CONC 33.9 g/dL (32.0-36.0); Mean Corpuscular Volume 94.4 fL (78.0-98.0); Mean Platelet Volume 5.6 fL (7.4-10.4); Platelet Count 535 thou/uL (130-400); RBC Distribution Width 11.4 % (11.5-14.5); White Blood Cell (WBC) Count 8.6 thou/uL (4.8-10.8)
[2019-01-18 05:45] LABS: ALT (SGPT) 118 U/L (8-55); AST (SGOT) 125 U/L (5-34); Albumin 2.8 g/dL (3.4-4.8); Alkaline Phosphatase 260 U/L (40-150); Anion Gap 10 mmol/L (10-20); BUN (Urea Nitrogen) 13 mg/dL (9.8-20.1); Bilirubin, Total 0.3 mg/dL (0.2-1.2); Calc. Creatinine Clearance 73 mL/min (70-130); Calcium 9.3 mg/dL (7.8-10.44); Carbon Dioxide 28 mmol/L (23-31); Chloride 102 mmol/L (98-107); Estimated GFR-MDRD 84; Globulin 3.5 g/dL (2.4-3.5); Glucose 111 mg/dL (83-110); Potassium 3.8 mmol/L (3.5-5.1); Protein, Total 6.3 g/dL (6.0-8.3); Sodium 136 mmol/L (136-145)
[2019-01-18] MEDS: CEFAZOLIN 2 GM, Admixture Fee 1 EACH in Sodium Chloride 0.9% 100 ML IVPB SCH ×3 (05:55→21:01)
[2019-01-18] MEDS: Levothyroxine Sodium 100 MCG TAB PO SCH (05:56)
[2019-01-18] MEDS: tiZANidine HCl 4 MG TAB PO SCH ×2 (08:25→20:34)
[2019-01-18] MEDS: Enoxaparin Sodium 40 MG/0.4 ML SYRINGE SC SCH (08:25)
[2019-01-18] MEDS: Amlodipine 5 MG TAB PO SCH (08:25)
[2019-01-18] MEDS: Polyethylene Glycol 3350 17 GM Packet PO SCH (08:25)
[2019-01-18] MEDS: Lidocaine 5% Patch TD SCH (08:26)
[2019-01-18] MEDS: Famotidine 20 MG TAB PO SCH (10:02)
[2019-01-18] MEDS: Multivitamin W/ Minerals 1 TAB PO SCH (10:02)
[2019-01-18] MEDS: Calcium Carbonate + Vit D 1 TAB PO SCH ×2 (10:02→20:34)
[2019-01-18] MEDS: Aspirin 81 mg Enteric Coated Tablet PO SCH (10:02)
--- NOTE | 2019-01-18 19:09 | PDOC.HOSPP ---
- Subjective Subjective: Having a little better day today. Was able to get up on her feet for the first time in days. Says the TLSO brace actually made her feel better. - Objective Vital Signs & Weight: Vital Signs (12 hours) Temp Pulse Resp BP Pulse Ox 01/18/19 08:24 94 L 01/18/19 08:00 98.8 F 72 18 152/74 H 94 L Weight Weight 148 lb 2.41 oz Most Recent Monitor Data Heart Rate from ECG 82 NIBP 131/72 NIBP BP-Mean 91 Respiration from ECG 24 SpO2 98 I&O: 01/17/19 01/18/19 01/19/19 06:59 06:59 06:59 Intake Total 480 2224 804 Output Total 6850 1750 Balance 480 179 -876 Result Diagrams: 01/18/19 04:56 01/18/19 04:56 ROS - Review of Systems All systems: All other ROS were reviewed and found negative. - Medication Medications: Active Medications Generic Name Dose Route Start Last Admin Trade Name Freq PRN Reason Stop Dose Admin Acetaminophen/Codeine Phosphate 1 tab 01/13/19 21:00 01/18/19 14:19 Tylenol #3 PO 1 tab 0300,0900,1500,2100 GWEN Administration Amlodipine Besylate 10 mg 01/18/19 09:00 01/18/19 08:25 Norvasc PO 10 mg DAILY GWEN Administration Aspirin 81 mg 01/12/19 09:00 01/18/19 10:02 Ecotrin PO 81 mg DAILY GWEN Administration Atorvastatin Calcium 10 mg 01/12/19 21:00 01/17/19 20:38 Lipitor PO 10 mg HS GWEN Administration Calcium/Vitamin D 1 tab 01/12/19 09:00 01/18/19 10:02 Caltrate 600 + Vit D PO 1 tab BID GWEN Administration Enoxaparin Sodium 40 mg 01/12/19 09:00 01/18/19 08:25 Lovenox SC 40 mg 0900 GWEN Administration Famotidine 20 mg 01/12/19 09:00 01/18/19 10:02 Pepcid PO 20 mg DAILY GWEN Administration Cefazolin Sodium 2 gm/ 100 mls @ 100 mls/hr 01/18/19 06:00 01/18/19 13:18 Miscellaneous Medication 1 IVPB 100 mls each/ Sodium Chloride Q8HR GWEN Administration Iron/Minerals/Multivitamins 1 tab 01/12/19 09:00 01/18/19 10:02 Theragran M PO 1 tab DAILY GWEN Administration Levothyroxine Sodium 100 mcg 01/12/19 06:00 01/18/19 05:56 Synthroid PO 100 mcg 0600 GWEN Administration Lidocaine 1 patch 01/13/19 09:00 01/18/19 08:26 Lidoderm 5% Patch TD 1 patch DAILY GWEN Administration Miscellaneous Medication 1 each 01/12/19 21:00 01/17/19 23:40 Lidocaine Patch Removal TOP 1 each 2100 GWEN Administration Polyethylene Glycol 17 gm 01/12/19 09:00 01/18/19 08:25 Miralax PO 17 gm DAILY GWEN Administration Tizanidine HCl 4 mg 01/13/19 21:00 01/18/19 08:25 Zanaflex PO 4 mg BID GWEN Administration Tizanidine HCl 2 mg 01/13/19 10:57 01/14/19 04:53 Zanaflex PO 2 mg Q6HR PRN Administration Muscle Spasm Tramadol HCl 50 mg 01/12/19 05:45 01/12/19 06:14 Ultram PO 50 mg Q4HR PRN Administration Pain - Exam NAD, awake alert Heart: RRR, no gallops, no rubs, normal peripheral pulses, murmur present, II/IV Respiratory: CTAB, no wheezes, no rales, no ronchi, normal chest expansion, no tachypnea, normal percussion Gastrointestinal: soft, non-tender, non-distended, normal bowel sounds, no palpable masses, no hepatomegaly, no splenomegaly, no bruit Extremities: no edema (Right antecubital area is erythematous.) Skin: normal turgor, no lesions, no rashes Neurological: no focal deficits Musculoskeletal: normal tone Psychiatric: normal affect, normal behavior, A&O x 3 Hosp A/P (1) Back pain Code(s): M54.9 - DORSALGIA, UNSPECIFIED Status: Acute (2) Clavicle fracture Code(s): S42.009A - FRACTURE OF UNSP PART OF UNSP CLAVICLE, INIT FOR CLOS FX Status: Acute (3) Diastolic dysfunction Code(s): I51.89 - OTHER ILL-DEFINED HEART DISEASES Status: Acute (4) Moderate mitral regurgitation Code(s): I34.0 - NONRHEUMATIC MITRAL (VALVE) INSUFFICIENCY Status: Acute (5) Sepsis Code(s): A41.9 - SEPSIS, UNSPECIFIED ORGANISM Status: Acute (6) T12 compression fracture Code(s): S22.080A - WEDGE COMPRESSION FRACTURE OF T11-T12 VERTEBRA, INIT Status: Acute (7) Thrombophlebitis of arm Code(s): I80.8 - PHLEBITIS AND THROMBOPHLEBITIS OF OTHER SITES Status: Acute (8) UTI (urinary tract infection) Status: Acute (9) Hypertension Code(s): I10 - ESSENTIAL (PRIMARY) HYPERTENSION Status: Chronic (10) Bacteremia due to Staphylococcus aureus Code(s): R78.81 - BACTEREMIA Status: Acute (11) H/O thrombophlebitis Code(s): Z86.72 - PERSONAL HISTORY OF THROMBOPHLEBITIS Status: Acute - Plan Continue Cefazolin. Continue PT. Stable for transfer to [facility], but needs approval. Discussed with CM. Working on it.
[2019-01-18] MEDS: Atorvastatin Calcium 10 MG TAB PO SCH (20:34)
[2019-01-18] MEDS: traMADol HCl 50 MG TAB PO PRN (22:13)
[2019-01-18] MEDS: Lidocaine Patch Removal 1 EACH TOP SCH (22:14)
[2019-01-19] MEDS: Nitroglycerin 0.4 MG TAB (25 Tab Bottle) SL SCH ×2 (01:10→01:19)
[2019-01-19 01:15] LABS: Troponin I Less than 0.010 ng/mL (< 0.028)
[2019-01-19] MEDS: Acetaminophen/Codeine 30-300mg Tablet PO SCH ×4 (02:26→20:26)
[2019-01-19] MEDS: CEFAZOLIN 2 GM, Admixture Fee 1 EACH in Sodium Chloride 0.9% 100 ML IVPB SCH ×3 (05:27→22:31)
[2019-01-19] MEDS: Levothyroxine Sodium 100 MCG TAB PO SCH (05:27)
[2019-01-19] MEDS: Polyethylene Glycol 3350 17 GM Packet PO SCH (08:31)
[2019-01-19] MEDS: tiZANidine HCl 4 MG TAB PO SCH ×2 (08:32→20:27)
[2019-01-19] MEDS: Enoxaparin Sodium 40 MG/0.4 ML SYRINGE SC SCH (08:32)
[2019-01-19] MEDS: Famotidine 20 MG TAB PO SCH (08:32)
[2019-01-19] MEDS: Aspirin 81 mg Enteric Coated Tablet PO SCH (08:32)
[2019-01-19] MEDS: Amlodipine 5 MG TAB PO SCH (08:32)
[2019-01-19] MEDS: Calcium Carbonate + Vit D 1 TAB PO SCH ×2 (08:32→20:27)
[2019-01-19] MEDS: Multivitamin W/ Minerals 1 TAB PO SCH (08:32)
[2019-01-19] MEDS: Lidocaine 5% Patch TD SCH (09:30)
[2019-01-19] MEDS: Ondansetron PF 4 MG/2 ML Vial IVP PRN (10:01)
[2019-01-19] MEDS: traMADol HCl 50 MG TAB PO PRN (13:52)
[2019-01-19] MEDS: tiZANidine HCl 4 MG TAB PO PRN (15:00)
[2019-01-19] MEDS: Atorvastatin Calcium 10 MG TAB PO SCH (20:27)
[2019-01-19] MEDS: Lidocaine Patch Removal 1 EACH TOP SCH (20:35)
--- NOTE | 2019-01-19 22:20 | PDOC.HOSPP ---
- Subjective Subjective: Feels ok. Has decided that she wants to go to [facility] now. - Objective Vital Signs & Weight: Vital Signs (12 hours) Temp Pulse Resp BP BP Pulse Ox 01/19/19 20:00 98.0 F 72 16 93/53 L 92 L 01/19/19 15:22 111/71 Weight Weight 148 lb 2.41 oz Most Recent Monitor Data Heart Rate from ECG 82 NIBP 131/72 NIBP BP-Mean 91 Respiration from ECG 24 SpO2 98 I&O: 01/18/19 01/19/19 01/20/19 06:59 06:59 06:59 Intake Total 2229 1604 880 Output Total 0200 2850 Balance 179 -1246 880 Result Diagrams: 01/18/19 04:56 01/18/19 04:56 ROS - Review of Systems All systems: All other ROS were reviewed and found negative. - Medication Medications: Active Medications Generic Name Dose Route Start Last Admin Trade Name Freq PRN Reason Stop Dose Admin Acetaminophen/Codeine Phosphate 1 tab 01/13/19 21:00 01/19/19 20:26 Tylenol #3 PO 1 tab 0300,0900,1500,2100 GWEN Administration Amlodipine Besylate 10 mg 01/18/19 09:00 01/19/19 08:32 Norvasc PO 10 mg DAILY GWEN Administration Aspirin 81 mg 01/12/19 09:00 01/19/19 08:32 Ecotrin PO 81 mg DAILY GWEN Administration Atorvastatin Calcium 10 mg 01/12/19 21:00 01/19/19 20:27 Lipitor PO 10 mg HS GWEN Administration Calcium/Vitamin D 1 tab 01/12/19 09:00 01/19/19 20:27 Caltrate 600 + Vit D PO 1 tab BID GWEN Administration Enoxaparin Sodium 40 mg 01/12/19 09:00 01/19/19 08:32 Lovenox SC 40 mg 0900 GWEN Administration Famotidine 20 mg 01/12/19 09:00 01/19/19 08:32 Pepcid PO 20 mg DAILY GWEN Administration Cefazolin Sodium 2 gm/ 100 mls @ 100 mls/hr 01/18/19 06:00 01/19/19 13:53 Miscellaneous Medication 1 IVPB 100 mls each/ Sodium Chloride Q8HR GWEN Administration Iron/Minerals/Multivitamins 1 tab 01/12/19 09:00 01/19/19 08:32 Theragran M PO 1 tab DAILY GWEN Administration Levothyroxine Sodium 100 mcg 01/12/19 06:00 01/19/19 05:27 Synthroid PO 100 mcg 0600 GWEN Administration Lidocaine 1 patch 01/13/19 09:00 01/18/19 08:26 Lidoderm 5% Patch TD 1 patch DAILY GWEN Administration Miscellaneous Medication 1 each 01/12/19 21:00 01/19/19 20:35 Lidocaine Patch Removal TOP Not Given 2[facility] Nitroglycerin 0.4 mg 01/19/19 01:00 01/19/19 01:19 Nitrostat SL 0.4 mg Q5MIN GWEN Administration Ondansetron HCl 4 mg 01/19/19 08:44 01/19/19 10:01 Zofran IVP 4 mg Q6H PRN Administration Nausea/Vomiting Polyethylene Glycol 17 gm 01/12/19 09:00 01/19/19 08:31 Miralax PO 17 gm DAILY GWEN Administration Tizanidine HCl 4 mg 01/13/19 21:00 01/19/19 20:27 Zanaflex PO 4 mg BID GWEN Administration Tizanidine HCl 2 mg 01/13/19 10:57 01/19/19 15:00 Zanaflex PO 2 mg Q6HR PRN Administration Muscle Spasm Tramadol HCl 50 mg 01/12/19 05:45 01/19/19 13:52 Ultram PO 50 mg Q4HR PRN Administration Pain - Exam NAD, awake alert Neck: supple, symmetric, no JVD, no Thyromegaly, no lymphadenopathy, no carotid bruit Heart: RRR, no gallops, murmur present Respiratory: CTAB, no wheezes, no rales, no ronchi, normal chest expansion, no tachypnea, normal percussion Gastrointestinal: soft, non-tender, non-distended, normal bowel sounds, no palpable masses, no hepatomegaly, no splenomegaly, no bruit Extremities: no cyanosis, no clubbing, no edema Skin: normal turgor (Right antecubital area with erythema and dressing over vein.) Musculoskeletal: normal tone, no muscle wasting Psychiatric: normal affect, normal behavior, A&O x 3 Hosp A/P (1) Back pain Code(s): M54.9 - DORSALGIA, UNSPECIFIED Status: Acute (2) Clavicle fracture Code(s): S42.009A - FRACTURE OF UNSP PART OF UNSP CLAVICLE, INIT FOR CLOS FX Status: Acute (3) Diastolic dysfunction Code(s): I51.89 - OTHER ILL-DEFINED HEART DISEASES Status: Acute (4) Moderate mitral regurgitation Code(s): I34.0 - NONRHEUMATIC MITRAL (VALVE) INSUFFICIENCY Status: Acute (5) Sepsis Code(s): A41.9 - SEPSIS, UNSPECIFIED ORGANISM Status: Acute (6) T12 compression fracture Code(s): S22.080A - WEDGE COMPRESSION FRACTURE OF T11-T12 VERTEBRA, INIT Status: Acute (7) Thrombophlebitis of arm Code(s): I80.8 - PHLEBITIS AND THROMBOPHLEBITIS OF OTHER SITES Status: Acute (8) UTI (urinary tract infection) Status: Acute (9) Hypertension Code(s): I10 - ESSENTIAL (PRIMARY) HYPERTENSION Status: Chronic (10) Bacteremia due to Staphylococcus aureus Code(s): R78.81 - BACTEREMIA Status: Acute (11) H/O thrombophlebitis Code(s): Z86.72 - PERSONAL HISTORY OF THROMBOPHLEBITIS Status: Acute - Plan Discussed with patient and her sister. Discussed disposition options. Discussed with CM. She has been accepted to [place], but would like to consider [facility] now. Will get PICC placed for IV Abx.
[2019-01-20] MEDS: Acetaminophen/Codeine 30-300mg Tablet PO SCH ×4 (03:08→20:35)
[2019-01-20] MEDS: CEFAZOLIN 2 GM, Admixture Fee 1 EACH in Sodium Chloride 0.9% 100 ML IVPB SCH ×2 (05:14→14:15)
[2019-01-20] MEDS: Levothyroxine Sodium 100 MCG TAB PO SCH (05:14)
[2019-01-20 05:58] LABS: Prothrombin Time 13.4 SEC (12.0-14.7)
[2019-01-20] MEDS: Polyethylene Glycol 3350 17 GM Packet PO SCH (08:08)
[2019-01-20] MEDS: Amlodipine 5 MG TAB PO SCH (08:09)
[2019-01-20] MEDS: Famotidine 20 MG TAB PO SCH (08:10)
[2019-01-20] MEDS: Enoxaparin Sodium 40 MG/0.4 ML SYRINGE SC SCH (08:10)
[2019-01-20] MEDS: tiZANidine HCl 4 MG TAB PO SCH ×2 (08:10→20:36)
[2019-01-20] MEDS: Calcium Carbonate + Vit D 1 TAB PO SCH ×2 (08:10→20:36)
[2019-01-20] MEDS: Multivitamin W/ Minerals 1 TAB PO SCH (08:10)
[2019-01-20] MEDS: Aspirin 81 mg Enteric Coated Tablet PO SCH (08:11)
[2019-01-20] MEDS ORDERED: Lorazepam 2 MG/ML VIAL SLOW IVP SCH (09:30)
[2019-01-20] MEDS: Ondansetron PF 4 MG/2 ML Vial IVP PRN (09:32)
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
--- NOTE | 2019-01-20 13:18 | EKG ---
Test Reason : Blood Pressure : / mmHG Vent. Rate : 088 BPM Atrial Rate : 088 BPM P-R Int : 168 ms QRS Dur : 088 ms QT Int : 378 ms P-R-T Axes : 046 -15 033 degrees QTc Int : 457 ms Normal sinus rhythm Inferior infarct , age undetermined Anterior infarct , age undetermined Abnormal ECG When compared with ECG of 11-JAN-2019 23:26, (Unconfirmed) Inferior infarct is now Present Confirmed by CATRACHITO WARD (2) on 01/20/2019 1:18:20 PM Referred By: Confirmed By:CATRACHITO WARD
[2019-01-20] MEDS: Lidocaine 5% Patch TD SCH (16:00)
[2019-01-20] MEDS: tiZANidine HCl 4 MG TAB PO PRN (16:07)
--- NOTE | 2019-01-20 16:15 | SPC ---
Sonographic guided left upper extremity PICC HISTORY: Sepsis. Need for long-term antibiotics. FINDINGS: After explaining the procedure and answering all questions, left upper extremity was preppe d and draped in the sterile fashion. Sterile technique, buffered local anesthesia, sonographic guidance, and a 22-gauge needle were used to carefully access the left basilic vein. Standard [employer] ue was used to place the tip of a 5 [place] single lumen PICC so that the tip lies at the level of the superior vena cava. Catheter was flushed and secured externally. Patient tolerated the procedure well and was returned in unchanged condition. IMPRESSION: Left upper extremity PICC is ready for use.
[2019-01-20] MEDS: traMADol HCl 50 MG TAB PO PRN (18:09)
[2019-01-20] MEDS: Atorvastatin Calcium 10 MG TAB PO SCH (20:36)
[2019-01-20 20:47] VITALS: BP 133/72; TEMP 97.8
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
== END 2019-01-20 20:50 | DRG 314 ==
LOC: ERS 23:13 → IMCU/EMU 01-12 02:07 → T4-A 01-12 20:14
PROVIDERS: ADMIT Hospitalist; ATTEND Hospitalist
PROC: 02HV33Z Insertion of Infusion Device into Superior Vena Cava, Percutaneous Approach (ICD-10-PCS; principal; 2019-01-20)
PROC: B548ZZA Ultrasonography of Superior Vena Cava, Guidance (ICD-10-PCS; 2019-01-20)
DX: T82.7XXA Infection and inflammatory reaction due to other cardiac and vascular devices, implants and grafts, initial encounter (principal); J96.01 Acute respiratory failure with hypoxia; A41.01 Sepsis due to Methicillin susceptible Staphylococcus aureus; R65.20 Severe sepsis without septic shock; E87.2 Acidosis; N39.0 Urinary tract infection, site not specified; E87.6 Hypokalemia; E03.9 Hypothyroidism, unspecified; E78.5 Hyperlipidemia, unspecified; I10 Essential (primary) hypertension; Z79.82 Long term (current) use of aspirin; I34.0 Nonrheumatic mitral (valve) insufficiency; Z86.72 Personal history of thrombophlebitis
CPT/HCPCS: 36415; 36569; 71045; 71260; 72158; 74177; 80048; 80053; 80076; 80202; 82550; 83605; 83880; 84484; 85025; 85610; 93005; 93010; 93306; 96360; C1751; J0690; J0696; J1650; J1885; J2060; J2405; J2700; J3370; J3490; J7050; L0639; Q9966

== ENCOUNTER 2019-02-10 09:31 | Outpatient (CLI) | payer MEDICARE ==
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
== END 2019-02-10 09:32 | disposition home or self-care (01) ==
LOC: TBSIIMAG 09:31
PROVIDERS: ATTEND Surgery
DX: S22.081D Stable burst fracture of T11-T12 vertebra, subsequent encounter for fracture with routine healing (principal); S32.011D Stable burst fracture of first lumbar vertebra, subsequent encounter for fracture with routine healing
CPT/HCPCS: 72100

== ENCOUNTER 2019-03-24 14:24 | Outpatient (CLI) | payer OTHER, MEDICARE ==
--- NOTE | 2019-03-24 14:45 | RAD ---
Lumbar spine 2 views: HISTORY: Low back pain COMPARISON: 02/10/2019 FINDINGS: Stable anterolisthesis of L4 and L5. Stable vertical height loss of T12 and L1 vertebral bodies. Bony demineralization. IMPRESSION: Stable T12 and L1 burst fractures and anterolisthesis of L4 and L5.
== END 2019-03-24 14:25 | disposition home or self-care (01) ==
LOC: TBSIIMAG 14:24
PROVIDERS: ATTEND Surgery
DX: S22.081A Stable burst fracture of T11-T12 vertebra, initial encounter for closed fracture (principal); S32.011A Stable burst fracture of first lumbar vertebra, initial encounter for closed fracture; M54.5 Low back pain; M43.16 Spondylolisthesis, lumbar region
CPT/HCPCS: 72100

== ENCOUNTER 2019-05-12 14:41 | Outpatient (CLI) | payer MEDICARE ==
--- NOTE | 2019-05-12 15:47 | RAD ---
LUMBAR SPINE TWO VIEWS: INDICATIONS: Back pain. Thoracolumbar fracture. COMPARISON: 03/24/2019 FINDINGS: The compression deformities involving the T12 and L1 vertebrae are again seen and appear unchanged. S light superior endplate compression of L2 is again noted and unchanged. The L3, L4 and L5 vertebrae maintain height. There is slight anterolisthesis at L4-L5 and at L5-S1 wh ich appears stable. IMPRESSION: No significant interval change. POS: TPC
== END 2019-05-12 14:42 | disposition home or self-care (01) ==
LOC: TBSIIMAG 14:41
PROVIDERS: ATTEND Surgery
DX: M54.5 Low back pain (principal); S22.008A Other fracture of unspecified thoracic vertebra, initial encounter for closed fracture
CPT/HCPCS: 72100

== ENCOUNTER 2019-06-03 13:36 | Outpatient (CLI) | payer MEDICARE, BC ==
--- NOTE | 2019-06-03 14:25 | BD ---
BONE DENSITOMETRY USING DEXA: HISTORY: Postmenopausal screening for osteoporosis. Age-related osteoporosis with current pathologic fracture , unspecified site. FINDINGS: Lumbar Spine: BMD (g/cm2) L1 0.878 T-Score: -1.0 Z-Score: 1.3 L2 0.814 T-Score: -1.9 Z-Score: 0.6 L3 0.797 T-Score: -2.6 Z-Score: 0.1 L4 0.628 T-Score: -3.9 Z-Score: -1.2 L1-L4 0.769 T-Score: -2.5 Z-Score: 0.0 Femoral Neck: 0.638 T-Score: -1.9 Z-Score: 0.3 Total Femur: 0.742 T-Score: -1.6 Z-Score: 0.3 Impression: Osteoporosis. POS: BARRY
--- NOTE | 2019-06-03 16:08 | MMO ---
Bilateral MAMMO Bilat Screen [facility]DI+ALEXANDRA. CLINICAL HISTORY: Patient is 78 years old and is seen for screening. The patient has no family history of breast cancer. The patient has no personal history of cancer. VIEWS: The views performed were: bilateral craniocaudal with tomosynthesis and bilateral mediolateral oblique with tomosynthesis. FILMS COMPARED: The present examination has been compared to prior imaging studies performed at [facility] on 03/14/2017 and 05/07/2018, and at [facility] on 12/26/2009 and 11/23/2013. This study has been interpreted with the assistance of computer-aided detection. MAMMOGRAM FINDINGS: The breasts are almost entirely fat. There are no suspicious masses, suspicious calcifications, or new areas of architectural distortion. IMPRESSION: THERE IS NO MAMMOGRAPHIC EVIDENCE OF MALIGNANCY. A ROUTINE FOLLOW-UP MAMMOGRAM IN 1 YEAR IS RECOMMENDED. THE RESULTS OF THIS EXAM WERE SENT TO THE PATIENT. ACR BI-RADS Category 1 - Negative MAMMOGRAPHY NOTE: 1. A negative mammogram report should not delay a biopsy if a dominant of clinically suspicious mass is present. 2. Approximately 10% to 15% of breast cancers are not detected by mammography. 3. Adenosis and dense breasts may obscure an underlying neoplasm. Reported by: HOUSTON BENDER MD Electonically Signed: [id number]
== END 2019-06-03 13:37 | disposition home or self-care (01) ==
LOC: BICMAMMO 13:36
PROVIDERS: ATTEND Internal Medicine
DX: Z12.31 Encounter for screening mammogram for malignant neoplasm of breast (principal); M80.00XA Age-related osteoporosis with current pathological fracture, unspecified site, initial encounter for fracture
CPT/HCPCS: 77063; 77067; 77080

== ENCOUNTER 2020-03-10 17:41 | Inpatient (IN) | payer MEDICARE, BC, OTHER ==
[2020-03-10 18:24] LABS: #Basophils 0.1 thou/uL (0.0-0.2); #Eosinphils 0.1 thou/uL (0.0-0.7); #Lymphocytes 3.2 thou/uL (1.20-3.40); #Monocytes 0.7 thou/uL (0.11-0.59); #Neutrophils 4.8 thou/uL (1.40-6.50); %Basophils 1.1 % (0.0-1.0); %Eosinophils 0.9 % (0.0-10.0); %Lymphocytes 36.5 % (21.0-51.0); %Neutrophils 53.4 % (42.0-75.0); Hemoglobin 14.7 g/dL (12.0-16.0); Mean Corpuscular HGB CONC 31.9 g/dL (32.0-36.0); Mean Corpuscular Hemoglobin 30.1 pg (27.0-31.0); Mean Corpuscular Volume 94.2 fL (78.0-98.0); Mean Platelet Volume 6.2 fL (7.4-10.4); Platelet Count 301 thou/uL (130-400); RBC Distribution Width 11.9 % (11.5-14.5); White Blood Cell (WBC) Count 8.9 thou/uL (4.8-10.8)
[2020-03-10 18:53] LABS: ALT (SGPT) 26 U/L (8-55); AST (SGOT) 26 U/L (5-34); Alkaline Phosphatase 68 U/L (40-110); Anion Gap 16 mmol/L (10-20); BUN (Urea Nitrogen) 25 mg/dL (9.8-20.1); Bilirubin, Total 0.4 mg/dL (0.2-1.2); CK (CPK) 14 U/L (29-168); Calc. Creatinine Clearance 0 mL/min (70-130); Calcium 8.7 mg/dL (7.8-10.44); Carbon Dioxide 25 mmol/L (23-31); Chloride 98 mmol/L (98-107); Estimated GFR-MDRD 81; Globulin 3.1 g/dL (2.4-3.5); Glucose 122 mg/dL (83-110); Potassium 3.4 mmol/L (3.5-5.1); Protein, Total 7.1 g/dL (6.0-8.3); Sodium 136 mmol/L (136-145)
--- NOTE | 2020-03-10 19:17 | RAD ---
XR Chest 1 View Portable History: Chest pain Comparison: Radiograph 2019 Findings: Heart size is enlarged. No pneumothorax. No effusion. No confluent airspace consolidation. Old left distal clavicular fracture. Impression: No acute intrathoracic abnormality.
[2020-03-10] MEDS ORDERED: traMADol HCl 50 MG TAB ONE (19:53)
[2020-03-10] MEDS ORDERED: Aspirin Chewable 81 MG TAB ONE (21:59)
[2020-03-10 22:02] LABS: Troponin I Less than 0.010 ng/mL (< 0.028)
[2020-03-10] MEDS ORDERED: Acetaminophen 325 MG TAB PO PRN (22:45)
[2020-03-10] MEDS ORDERED: Ondansetron ODT 4 MG TAB SL PRN (22:45)
[2020-03-10] MEDS ORDERED: Ondansetron PF 4 MG/2 ML Vial IVP PRN (22:45)
[2020-03-10 23:35] VITALS: BMI 27.3
[2020-03-10] MEDS ORDERED: ALPRAZolam 0.25 MG TAB PO PRN (23:48)
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
[2020-03-11] MEDS ORDERED: Amlodipine 10 MG TAB PO SCH (00:15)
[2020-03-11] MEDS ORDERED: Famotidine 20 MG TAB PO SCH (00:15)
[2020-03-11] MEDS ORDERED: traMADol HCl 50 MG TAB PO SCH (00:15)
[2020-03-11] MEDS ORDERED: Potassium Chloride 20 MEQ TAB PO SCH (00:15)
[2020-03-11 04:28] LABS: Bacteria/HPF None Seen HPF (None Seen); Bilirubin Negative (Negative); Blood, Urine Negative (Negative); Clarity Clear (Clear); Glucose, Urine (Dipstick) Normal (Negative); Ketone, Urine Negative (Negative); Leukocyte Negative Leu/uL (Negative); Nitrite Negative (Negative); Protein, Urine (Dipstick) Negative (Neg-Trace); RBC/HPF 0-3 HPF (0-3); Specific Gravity, Urine 1.013 (1.002-1.036); Squamous Epithelial None Seen HPF (0-3); Urobilinogen Normal mg/dL (Less than 2); WBC/HPF 0-3 HPF (0-3); pH, Urine 6.5 (5.0-9.0)
[2020-03-11 04:31] LABS: Urine Culture Reflex No No
[2020-03-11] MEDS: Sodium Chloride 0.9% 1,000 ML IV SCH ×2 (05:16→20:29)
[2020-03-11] MEDS: Levothyroxine Sodium 100 MCG TAB PO SCH (05:16)
[2020-03-11] MEDS ORDERED: Aspirin 325 mg Enteric Coated Tablet PO SCH (09:00)
[2020-03-11] MEDS ORDERED: Hydrochlorothiazide 25 MG TAB PO SCH (09:00)
[2020-03-11] MEDS: Multivitamin W/ Minerals 1 TAB PO SCH (09:22)
[2020-03-11] MEDS: Fish Oil 1,000 MG CAP PO SCH (09:25)
[2020-03-11] MEDS: Calcium Carbonate 600 MG + Vit D TAB PO SCH (09:26)
[2020-03-11] MEDS: traMADol HCl 50 MG TAB PO SCH ×3 (09:26→20:34)
[2020-03-11] MEDS: Ubidecarenone 50 MG CAP PO SCH (09:26)
--- NOTE | 2020-03-11 09:49 | ULT ---
BILATERAL CAROTID DUPLEX ULTRASOUND INCLUDING COLOR AND SPECTRAL DOPPLER IMAGING: HISTORY: Syncope. FINDINGS: Minimal plaque in the proximal ICAs bilaterally. PSV right ICA 79 cm/s, EDV 23 cm/s. ICA/CCA ratio 0.8. PSV left ICA 89 cm/s, EDV 24 cm/s. ICA/CCA ratio 0.9. Vertebral flow is antegrade. IMPRESSION: No hemodynamically significant stenosis. Evidence for atherosclerotic carotid vascular disease. POS: OFF
[2020-03-11] MEDS ORDERED: Famotidine 20 MG TAB PO PRN (14:34)
[2020-03-11 14:49] LABS: SARS-CoV-2 MS2 Positive; SARS-CoV-2 N Gene Negative; SARS-CoV-2 S Gene Negative; SARS-CoV-2 by NAA Not Detected (NotDetected); SARS-CoV-2 orf1ab Negative
[2020-03-11 15:15] LABS: Troponin I 0.016 ng/mL (< 0.028)
--- NOTE | 2020-03-11 17:21 | PDOC.HOSPP ---
- Subjective Encounter Date: 03/11/20 Encounter Time: 09:55 Subjective: pt up in bed no complains - Objective Vital Signs & Weight: Vital Signs (12 hours) Temp Pulse Resp BP BP BP BP 03/11/20 15:36 98.7 F 68 20 142/68 H 03/11/20 11:25 98.7 F 67 20 147/66 H 03/11/20 07:18 98.4 F 75 20 138/65 145/71 H 132/60 Pulse Ox 03/11/20 15:36 94 L 03/11/20 11:25 93 L 03/11/20 07:18 95 Weight Weight 135 lb 4.8 oz I&O: 03/10/20 03/11/20 03/12/20 06:59 06:59 06:59 Intake Total 450 Output Total 500 700 Balance -50 -700 Result Diagrams: 03/10/20 18:04 03/10/20 18:04 Hospitalist ROS - Review of Systems Cardiovascular: denies: chest pain, palpitations, orthopnea, paroxysmal noc. dyspnea, edema, light headedness, other Gastrointestinal: denies: nausea, vomiting, abdominal pain, diarrhea, constipation, melena, hematochezia, other Genitourinary: denies: dysuria, frequency, incontinence, hematuria, retention, other - Medication Medications: Active Medications Generic Name Dose Route Start Last Admin Trade Name Palomoq PRN Reason Stop Dose Admin Calcium/Vitamin D 1 tab 03/11/20 09:00 03/11/20 09:26 Calcium Carbonate 600 Mg + Vit D Tab PO Not Given DAILY GWEN Coenzyme Q10 100 mg 03/11/20 09:00 03/11/20 09:26 Ubidecarenone 50 Mg Cap PO 100 mg DAILY GWEN Administration Fish Oil 1,000 mg 03/11/20 09:00 03/11/20 09:25 Fish Oil 1,000 Mg Cap PO Not Given DAILY GWEN Hydrochlorothiazide 25 mg 03/11/20 09:00 03/11/20 09:23 Hydrochlorothiazide 25 Mg Tab PO 25 mg DAILY GWEN Administration Sodium Chloride 1,000 mls @ 65 mls/hr 03/11/20 03:15 03/11/20 05:16 Normal Saline 0.9% IV 1,000 mls .[id number] GWEN Administration Iron/Minerals/Multivitamins 1 tab 03/11/20 09:00 03/11/20 09:22 Multivitamin W/ Minerals 1 Tab PO Not Given DAILY GWEN Levothyroxine Sodium 100 mcg 03/11/20 06:00 03/11/20 05:16 Levothyroxine Sodium 100 Mcg Tab PO 100 mcg 0600 GWEN Administration Sodium Chloride 10 ml 03/11/20 09:00 03/11/20 09:28 Flush - Normal Saline 10 Ml Syringe IVF Not Given Q12HR GWEN Sodium Chloride 10 ml 03/10/20 22:45 03/11/20 05:16 Flush - Normal Saline 10 Ml Syringe IVF 10 ml PRN PRN Administration Saline Flush Tramadol HCl 50 mg 03/11/20 09:00 03/11/20 15:28 Tramadol Hcl 50 Mg Tab PO 50 mg TID GWEN Administration - Exam Neck: negative: supple, symmetric, no JVD, no thyromegaly, no lymphadenopathy, no carotid bruit, JVD Heart: negative: RRR, no murmur, no gallops, no rubs, normal peripheral pulses, irregular, diminshed peripheral pulses, murmur present, II/IV, III/IV Respiratory: negative: CTAB, no wheezes, no rales, no ronchi, normal chest expansion, no tachypnea, normal percussion, rales, rhonchi, tachypneic, wheezes Gastrointestinal: negative: soft, non-tender, non-distended, normal bowel sounds, no palpable masses, no hepatomegaly, no splenomegaly, no bruit, no guarding, no rigidity, tender to palpation, distended, diminished bowl sounds, voluntary guarding Hosp A/P (1) Chest pain Code(s): R07.9 - CHEST PAIN, UNSPECIFIED Status: Acute (2) Hyperlipidemia Code(s): E78.5 - HYPERLIPIDEMIA, UNSPECIFIED Status: Acute (3) Vaso vagal episode Code(s): R55 - SYNCOPE AND COLLAPSE Status: Acute (4) Osteoporosis Code(s): M81.0 - AGE-RELATED OSTEOPOROSIS W/O CURRENT PATHOLOGICAL FRACTURE Status: Chronic - Plan pt's d-dimer negative. will get a stress test since she has not had one for a while. pt has been having syncopal spells. she apparently has had a holter monitor in the past but does not know the results of it. will refer her to cardiology. This is not new for her. carotid normal. she does have moderate AR and will need follow up. tsh normal. she has a presyncope episode after she took nitro.
[2020-03-11] MEDS: Acetaminophen 325 MG TAB PO PRN (18:06)
[2020-03-11] MEDS: Aspirin 81 mg Enteric Coated Tablet PO SCH (18:33)
[2020-03-11 20:19] LABS: Anion Gap 13 mmol/L (10-20); BUN (Urea Nitrogen) 14 mg/dL (9.8-20.1); Calc. Creatinine Clearance 65 mL/min (70-130); Calcium 8.3 mg/dL (7.8-10.44); Carbon Dioxide 25 mmol/L (23-31); Chloride 104 mmol/L (98-107); Estimated GFR-MDRD 82; Glucose 125 mg/dL (83-110); Potassium 3.4 mmol/L (3.5-5.1); Sodium 139 mmol/L (136-145)
[2020-03-11] MEDS: Famotidine 20 MG TAB PO SCH (20:32)
[2020-03-11] MEDS: Amlodipine 5 MG TAB PO SCH (20:33)
[2020-03-11] MEDS: Atorvastatin Calcium 10 MG TAB PO SCH (20:34)
[2020-03-12] MEDS: Levothyroxine Sodium 100 MCG TAB PO SCH (05:13)
[2020-03-12] MEDS ORDERED: Potassium Chloride 20 MEQ TAB PO SCH (07:45)
[2020-03-12] MEDS ORDERED: ADENOSINE 60 MG/20 ML VIAL ONE (09:25)
[2020-03-12] MEDS ORDERED: Ondansetron PF 4 MG/2 ML Vial IVP PRN (09:34)
[2020-03-12] MEDS: Calcium Carbonate 600 MG + Vit D TAB PO SCH (12:10)
[2020-03-12] MEDS: traMADol HCl 50 MG TAB PO SCH ×3 (12:11→20:18)
[2020-03-12] MEDS: Fish Oil 1,000 MG CAP PO SCH (12:17)
[2020-03-12] MEDS: Multivitamin W/ Minerals 1 TAB PO SCH (12:17)
[2020-03-12] MEDS: Ubidecarenone 50 MG CAP PO SCH (12:18)
[2020-03-12] MEDS: Sodium Chloride 0.9% 1,000 ML IV SCH (14:06)
[2020-03-12] MEDS ORDERED: Nitroglycerin 0.4 MG TAB (25 Tab Bottle) ONE (16:09)
--- NOTE | 2020-03-12 16:49 | NM ---
EXAM: NM Cardiac Stress W EF WF PROVIDED CLINICAL HISTORY: Chest pain COMPARISON: None FINDINGS: This examination was performed as a pharmacological myocardial stress test after the administration o f adenosine. There is a loop of bowel with prominent activity seen adjacent to the lateral and inferolateral left ventricular wall on the stress acquisition. Delayed imaging was performed, but significant activity persists in the loop of bowel. This does limit evaluation. However, no definite significant reversibl e defect is seen between the stress and resting acquisitions. Relatively fixed defect is seen at the ventricular apex. Gated images demonstrate normal ventricular wall motion and wall thickening. Th e calculated left ventricular ejection fraction is 71%. IMPRESSION: 1 Suboptimal evaluation of stress imaging due to prominent radiotracer activity within a loop of judy l adjacent to the lateral and inferolateral left ventricular wall. However, no definite significant reversible defect is seen to suggest ischemia. Relatively fixed defect is present at the ventricular apex which could be related to apical thinning. 2. Normal LVEF of 71%.
[2020-03-12] MEDS: Acetaminophen 325 MG TAB PO PRN (17:26)
--- NOTE | 2020-03-12 17:46 | PDOC.HOSPP ---
- Subjective Encounter Date: 03/12/20 - Objective Vital Signs & Weight: Vital Signs (12 hours) Temp Pulse Resp BP BP Pulse Ox 03/12/20 16:00 98.5 F 90 20 189/86 H 97 03/12/20 13:29 97.6 F 69 16 159/72 H 96 03/12/20 07:52 98.1 F 67 18 144/70 H 97 Weight Weight 136 lb I&O: 03/11/20 03/12/20 03/13/20 06:59 06:59 06:59 Intake Total 450 2644 Output Total 500 1915 100 Balance -50 729 -100 Result Diagrams: 03/10/20 18:04 03/11/20 19:38 Hospitalist ROS - Review of Systems Cardiovascular: reports: chest pain Gastrointestinal: denies: nausea, vomiting, abdominal pain, diarrhea, constipation, melena, hematochezia, other Genitourinary: denies: dysuria, frequency, incontinence, hematuria, retention, other - Medication Medications: Active Medications Generic Name Dose Route Start Last Admin Trade Name Freq PRN Reason Stop Dose Admin Acetaminophen 650 mg 03/11/20 17:52 03/12/20 17:26 Acetaminophen 325 Mg Tab PO 650 mg Q4H PRN Administration Headache/Fever or Pain Amlodipine Besylate 5 mg 03/11/20 21:00 03/11/20 20:33 Amlodipine 5 Mg Tab PO 5 mg HS GWEN Administration Aspirin 81 mg 03/11/20 21:00 03/11/20 18:33 Aspirin 81 Mg Enteric Coated Tablet PO Not Given HS GWEN Atorvastatin Calcium 10 mg 03/11/20 21:00 03/11/20 20:34 Atorvastatin Calcium 10 Mg Tab PO 10 mg HS GWEN Administration Calcium/Vitamin D 1 tab 03/11/20 09:00 03/12/20 12:10 Calcium Carbonate 600 Mg + Vit D Tab PO 1 tab DAILY GWEN Administration Coenzyme Q10 100 mg 03/11/20 09:00 03/12/20 12:18 Ubidecarenone 50 Mg Cap PO Not Given DAILY GWEN Famotidine 20 mg 03/11/20 21:00 03/11/20 20:32 Famotidine 20 Mg Tab PO 20 mg 2100 GWEN Administration Fish Oil 1,000 mg 03/11/20 09:00 03/12/20 12:17 Fish Oil 1,000 Mg Cap PO Not Given DAILY GWEN Iron/Minerals/Multivitamins 1 tab 03/11/20 09:00 03/12/20 12:17 Multivitamin W/ Minerals 1 Tab PO Not Given DAILY GWEN Levothyroxine Sodium 100 mcg 03/11/20 06:00 03/12/20 05:13 Levothyroxine Sodium 100 Mcg Tab PO Not Given 0600 GWEN Sodium Chloride 10 ml 03/11/20 09:00 03/12/20 12:17 Flush - Normal Saline 10 Ml Syringe IVF Not Given Q12HR GWEN Sodium Chloride 10 ml 03/10/20 22:45 03/11/20 05:16 Flush - Normal Saline 10 Ml Syringe IVF 10 ml PRN PRN Administration Saline Flush Tramadol HCl 50 mg 03/11/20 09:00 03/12/20 17:24 Tramadol Hcl 50 Mg Tab PO 50 mg TID GWEN Administration - Exam Heart: negative: RRR, no murmur, no gallops, no rubs, normal peripheral pulses, irregular, diminshed peripheral pulses, murmur present, II/IV, III/IV Respiratory: negative: CTAB, no wheezes, no rales, no ronchi, normal chest expansion, no tachypnea, normal percussion, rales, rhonchi, tachypneic, wheezes Hosp A/P (1) Chest pain Code(s): R07.9 - CHEST PAIN, UNSPECIFIED Status: Acute (2) Hyperlipidemia Code(s): E78.5 - HYPERLIPIDEMIA, UNSPECIFIED Status: Acute (3) Vaso vagal episode Code(s): R55 - SYNCOPE AND COLLAPSE Status: Acute (4) Osteoporosis Code(s): M81.0 - AGE-RELATED OSTEOPOROSIS W/O CURRENT PATHOLOGICAL FRACTURE Status: Chronic - Plan pt's d-dimer negative. will get a stress test since she has not had one for a while. pt has been having syncopal spells. she apparently has had a holter monitor in the past but does not know the results of it. will refer her to cardiology. This is not new for her. carotid normal. she does have moderate AR and will need follow up. tsh normal. she has a presyncope episode after she took nitro. 03/12 stress test negative but pt started to have chest pain following by sensation to her jaw and head. will get cardiology to see her sarkis. She does have q waves in her ekg, trops negative. She took nitro which relieved her pain.
[2020-03-12] MEDS: Atorvastatin Calcium 10 MG TAB PO SCH (20:17)
[2020-03-12] MEDS: Famotidine 20 MG TAB PO SCH (20:17)
[2020-03-12] MEDS: Amlodipine 5 MG TAB PO SCH (20:17)
[2020-03-12] MEDS: Aspirin 81 mg Enteric Coated Tablet PO SCH (20:18)
[2020-03-13] MEDS: Levothyroxine Sodium 100 MCG TAB PO SCH (05:07)
[2020-03-13] MEDS: Ubidecarenone 50 MG CAP PO SCH (08:14)
[2020-03-13] MEDS: Multivitamin W/ Minerals 1 TAB PO SCH (08:15)
[2020-03-13] MEDS: Fish Oil 1,000 MG CAP PO SCH (08:15)
[2020-03-13] MEDS: Calcium Carbonate 600 MG + Vit D TAB PO SCH (08:15)
[2020-03-13] MEDS: traMADol HCl 50 MG TAB PO SCH ×3 (08:15→20:59)
[2020-03-13] MEDS ORDERED: hydrALAZINE 20 MG/ML VIAL SLOW IVP PRN (08:36)
[2020-03-13] MEDS ORDERED: Amlodipine 5 MG TAB PO SCH (08:45)
[2020-03-13] MEDS ORDERED: Communication Order-Pharmacy FS SCH (14:15)
--- NOTE | 2020-03-13 15:51 | EKG ---
Test Reason : Blood Pressure : / mmHG Vent. Rate : 099 BPM Atrial Rate : 099 BPM P-R Int : 158 ms QRS Dur : 082 ms QT Int : 356 ms P-R-T Axes : 056 -30 046 degrees QTc Int : 456 ms Normal sinus rhythm Possible Left atrial enlargement Left axis deviation Inferior infarct (cited on or before 10-MAR-2020) Abnormal ECG When compared with ECG of 10-MAR-2020 17:53, (Unconfirmed) Vent. rate has increased BY 34 BPM Confirmed by ALIZE MACKEY M.D. ([id number]) on 03/13/2020 3:50:48 PM Referred By: ROSA Confirmed By:ALIZE MACKEY M.D.
[2020-03-13] MEDS: Acetaminophen 325 MG TAB PO PRN (16:14)
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
[2020-03-13] MEDS: Aspirin 81 mg Enteric Coated Tablet PO SCH (20:57)
[2020-03-13] MEDS: Amlodipine 5 MG TAB PO SCH (20:58)
[2020-03-13] MEDS: Atorvastatin Calcium 10 MG TAB PO SCH (20:59)
[2020-03-13] MEDS: Famotidine 20 MG TAB PO SCH (20:59)
[2020-03-14 04:40] LABS: Anion Gap 12 mmol/L (10-20); BUN (Urea Nitrogen) 21 mg/dL (9.8-20.1); Calc. Creatinine Clearance 67 mL/min (70-130); Calcium 8.8 mg/dL (7.8-10.44); Carbon Dioxide 26 mmol/L (23-31); Chloride 105 mmol/L (98-107); Estimated GFR-MDRD 85; Glucose 103 mg/dL (83-110); Potassium 3.8 mmol/L (3.5-5.1); Sodium 139 mmol/L (136-145)
[2020-03-14] MEDS: Levothyroxine Sodium 100 MCG TAB PO SCH (05:10)
[2020-03-14] MEDS ORDERED: Sodium Chloride 0.9% 1,000 ML IV SCH ×2 (06:00→07:56)
[2020-03-14] MEDS ORDERED: Heparin 10,000 UNITS/ 10 ML VIAL ONE (06:34)
[2020-03-14] MEDS ORDERED: Lidocaine 1% (PF) 30 ML VIAL ONE (06:35)
[2020-03-14] MEDS ORDERED: Midazolam HCl 2 mg/2 ml Vial ONE (07:06)
[2020-03-14] MEDS ORDERED: Fentanyl 100 MCG/2 ML VIAL ONE (07:07)
[2020-03-14] MEDS ORDERED: Protamine Sulfate 50 MG/5 ML VIAL ONE (07:22)
--- NOTE | 2020-03-14 07:51 | PDOC.HOSPP ---
- Subjective Encounter Date: 03/13/20 Encounter Time: 10:15 Subjective: pt up in bed no complains - Objective Vital Signs & Weight: Vital Signs (12 hours) Temp Pulse Resp BP BP Pulse Ox 03/14/20 04:25 98 F 71 18 146/72 H 96 03/13/20 20:58 76 149/72 H Weight Weight 135 lb I&O: 03/13/20 03/14/20 03/15/20 06:59 06:59 06:59 Intake Total 980 820 Output Total 100 350 Balance 880 470 Result Diagrams: 03/10/20 18:04 03/14/20 04:01 Hospitalist ROS - Review of Systems Cardiovascular: denies: chest pain, palpitations, orthopnea, paroxysmal noc. dyspnea, edema, light headedness, other Gastrointestinal: denies: nausea, vomiting, abdominal pain, diarrhea, constipation, melena, hematochezia, other Genitourinary: denies: dysuria, frequency, incontinence, hematuria, retention, other - Medication Medications: Active Medications Generic Name Dose Route Start Last Admin Trade Name Freq PRN Reason Stop Dose Admin Acetaminophen 650 mg 03/11/20 17:52 03/13/20 16:14 Acetaminophen 325 Mg Tab PO 650 mg Q4H PRN Administration Headache/Fever or Pain Alprazolam 0.25 mg 03/10/20 23:48 03/13/20 21:01 Alprazolam 0.25 Mg Tab PO 0.25 mg TID PRN Administration Anxiety Amlodipine Besylate 5 mg 03/11/20 21:00 03/13/20 20:58 Amlodipine 5 Mg Tab PO 5 mg HS GWEN Administration Aspirin 81 mg 03/11/20 21:00 03/13/20 20:57 Aspirin 81 Mg Enteric Coated Tablet PO 81 mg HS GWEN Administration Atorvastatin Calcium 10 mg 03/11/20 21:00 03/13/20 20:59 Atorvastatin Calcium 10 Mg Tab PO 10 mg HS GWEN Administration Calcium/Vitamin D 1 tab 03/11/20 09:00 03/13/20 08:15 Calcium Carbonate 600 Mg + Vit D Tab PO 1 tab DAILY GWEN Administration Coenzyme Q10 100 mg 03/11/20 09:00 03/13/20 08:14 Ubidecarenone 50 Mg Cap PO 100 mg DAILY GWEN Administration Famotidine 20 mg 03/11/20 21:00 03/13/20 20:59 Famotidine 20 Mg Tab PO 20 mg 2100 GWEN Administration Fish Oil 1,000 mg 03/11/20 09:00 03/13/20 08:15 Fish Oil 1,000 Mg Cap PO 1,000 mg DAILY GWEN Administration Sodium Chloride 1,000 mls @ 100 mls/hr 03/14/20 06:00 03/14/20 05:19 Normal Saline 0.9% IV 1,000 mls .Q10H GWEN Administration Iron/Minerals/Multivitamins 1 tab 03/11/20 09:00 03/13/20 08:15 Multivitamin W/ Minerals 1 Tab PO 1 tab DAILY GWEN Administration Levothyroxine Sodium 100 mcg 03/11/20 06:00 03/14/20 05:10 Levothyroxine Sodium 100 Mcg Tab PO 100 mcg 0600 GWEN Administration Sodium Chloride 10 ml 03/11/20 09:00 03/13/20 21:01 Flush - Normal Saline 10 Ml Syringe IVF 10 ml Q12HR GWEN Administration Sodium Chloride 10 ml 03/10/20 22:45 03/11/20 05:16 Flush - Normal Saline 10 Ml Syringe IVF 10 ml PRN PRN Administration Saline Flush Tramadol HCl 50 mg 03/11/20 09:00 03/13/20 20:59 Tramadol Hcl 50 Mg Tab PO 50 mg TID GWEN Administration - Exam Heart: negative: RRR, no murmur, no gallops, no rubs, normal peripheral pulses, irregular, diminshed peripheral pulses, murmur present, II/IV, III/IV Respiratory: negative: CTAB, no wheezes, no rales, no ronchi, normal chest e xpansion, no tachypnea, normal percussion, rales, rhonchi, tachypneic, wheezes Gastrointestinal: negative: soft, non-tender, non-distended, normal bowel sounds, no palpable masses, no hepatomegaly, no splenomegaly, no bruit, no guarding, no rigidity, tender to palpation, distended, diminished bowl sounds, voluntary guarding Hosp A/P (1) Chest pain Code(s): R07.9 - CHEST PAIN, UNSPECIFIED Status: Acute (2) Hyperlipidemia Code(s): E78.5 - HYPERLIPIDEMIA, UNSPECIFIED Status: Acute (3) Vaso vagal episode Code(s): R55 - SYNCOPE AND COLLAPSE Status: Acute (4) Osteoporosis Code(s): M81.0 - AGE-RELATED OSTEOPOROSIS W/O CURRENT PATHOLOGICAL FRACTURE Status: Chronic - Plan pt's d-dimer negative. will get a stress test since she has not had one for a while. pt has been having syncopal spells. she apparently has had a holter monitor in the past but does not know the results of it. will refer her to cardiology. This is not new for her. carotid normal. she does have moderate AR and will need follow up. tsh normal. she has a presyncope episode after she took nitro. 03/12 stress test negative but pt started to have chest pain following by sensation to her jaw and head. will get cardiology to see her sarkis. She does have q waves in her ekg, trops negative. She took nitro which relieved her pain. 03/13 cardiology to see pt. will continue her current meds.
[2020-03-14] MEDS ORDERED: Nitroglycerin 0.4 MG TAB (25 Tab Bottle) SL PRN (07:55)
[2020-03-14] MEDS ORDERED: Acetaminophen/Codeine 30-300mg Tablet PO PRN ×2 (07:55)
[2020-03-14] MEDS ORDERED: Sodium Chloride 0.9% 200 ML IV PRN (07:55)
[2020-03-14] MEDS ORDERED: Amlodipine 5 MG TAB PO SCH (08:00)
[2020-03-14 08:24] LABS: Cardiac Risk 2.4 (Less than 4.5)
[2020-03-14] MEDS: Calcium Carbonate 600 MG + Vit D TAB PO SCH (10:27)
[2020-03-14] MEDS: Fish Oil 1,000 MG CAP PO SCH (10:28)
[2020-03-14] MEDS: Multivitamin W/ Minerals 1 TAB PO SCH (10:28)
[2020-03-14] MEDS: Ubidecarenone 50 MG CAP PO SCH (10:29)
[2020-03-14] MEDS: traMADol HCl 50 MG TAB PO SCH ×2 (10:33→16:32)
[2020-03-14 12:23] VITALS: TEMP 98.2
[2020-03-14 16:01] VITALS: BP 130/74
[2020-03-14 16:18] LABS: #Eosinphils 0.1 thou/uL (0.0-0.7); #Lymphocytes 1.9 thou/uL (1.20-3.40); #Monocytes 0.7 thou/uL (0.11-0.59); #Neutrophils 5.3 thou/uL (1.40-6.50); %Basophils 0.4 % (0.0-1.0); %Lymphocytes 23.7 % (21.0-51.0); %Monocytes 8.7 % (0.0-10.0); %Neutrophils 66.2 % (42.0-75.0); Hemoglobin 13.2 g/dL (12.0-16.0); Mean Corpuscular HGB CONC 33.6 g/dL (32.0-36.0); Mean Corpuscular Hemoglobin 31.5 pg (27.0-31.0); Mean Corpuscular Volume 93.8 fL (78.0-98.0); Mean Platelet Volume 6.3 fL (7.4-10.4); Platelet Count 275 thou/uL (130-400); RBC Distribution Width 11.9 % (11.5-14.5); Red Blood Cell (RBC) Count 4.18 mill/uL (4.20-5.40)
[2020-03-14] MEDS ORDERED: Atorvastatin Calcium 20 MG TAB PO SCH (21:00)
--- NOTE | 2020-03-15 05:14 | DIS ---
DATE OF ADMISSION: 03/12/2020 DATE OF DISCHARGE: 03/14/2020 DISCHARGE DIAGNOSES: 1. Chest pain. 2. Hypertension, very. 3. Labile. Presyncope. HOSPITAL COURSE: The patient is a very pleasant 79-year-old female who initially came into the hospital with chest pain and some vasovagal presyncopal episode. The patient stated that she did not pass out. However, she had chest pain. At this time, a stress test was done which was normal. However, patient the similar day had chest tightness radiating to her jaw. At this time, Cardiology was consulted and patient underwent a cardiac catheterization, which indicated mild coronary disease. The patient at this time was then ordered carotid Dopplers, which were also normal. She was then discharged home. Her blood pressure has been very labile. HOME MEDICATIONS: 1. Norvasc 5 mg at bedtime. 2. Metoprolol 25 mg daily. 3. Aspirin 81 mg daily. 4. Synthroid 100 mcg daily. 5. Pepcid 20 mg as needed. 6. Atorvastatin 20 mg at bedtime. 7. Lasix as needed. 8. Her hydrochlorothiazide was discontinued. PHYSICAL EXAMINATION: VITAL SIGNS ON DISCHARGE: Temperature 98.2, 64, 16, 96% on room air, 137/63. GENERAL: She is awake, alert, and oriented x3. Does not appear in distress. CV: S1, S2 present. No murmurs, rubs, or gallops. FOLLOWUP: She will follow up with primary and also Cardiology as needed. Job ID: [id number]
== END 2020-03-14 17:45 | disposition home or self-care (01) | DRG 287 ==
LOC: ERS 17:41 → 2SW 21:00 → OBSVTOIN 03-12 17:39 → 2NO 03-12 18:55
PROVIDERS: ADMIT Internal Medicine; ATTEND Internal Medicine
PROC: 4A023N7 Measurement of Cardiac Sampling and Pressure, Left Heart, Percutaneous Approach (ICD-10-PCS; principal; 2020-03-14)
PROC: B2151ZZ Fluoroscopy of Left Heart using Low Osmolar Contrast (ICD-10-PCS; 2020-03-14)
PROC: B2111ZZ Fluoroscopy of Multiple Coronary Arteries using Low Osmolar Contrast (ICD-10-PCS; 2020-03-14)
DX: I47.1 Supraventricular tachycardia (principal); Z20.828 Contact with and (suspected) exposure to other viral communicable diseases; R07.89 Other chest pain; M81.0 Age-related osteoporosis without current pathological fracture; E03.9 Hypothyroidism, unspecified; E78.5 Hyperlipidemia, unspecified; I10 Essential (primary) hypertension; E87.6 Hypokalemia; I51.89 Other ill-defined heart diseases; E78.00 Pure hypercholesterolemia, unspecified; Z79.82 Long term (current) use of aspirin; Z79.890 Hormone replacement therapy; Z79.899 Other long term (current) drug therapy
CPT/HCPCS: 36415; 71045; 78452; 80048; 80053; 80061; 81001; 82550; 83735; 84443; 84484; 85025; 85347; 85379; 87635; 93005; 93010; 93017; 93306; 93458; 93880; 94760; 96360; 96361; 99152; A9500; G0378; J0153; J1644; J2001; J2250; J2720; J3010; U0003

== ENCOUNTER 2020-04-06 06:04 | Day surgery (SDC) | payer MEDICARE, BC ==
[2020-04-05 15:51] VITALS: BMI 27.0
[2020-04-06] MEDS ORDERED: Gentamicin 80 MG/2 ML VIAL ONE (06:48)
[2020-04-06] MEDS ORDERED: CEFAZOLIN 1 GM VIAL ONE (06:48)
[2020-04-06] MEDS ORDERED: Lidocaine 1% (PF) 30 ML VIAL ONE ×4 (06:49→07:33)
[2020-04-06] MEDS ORDERED: Midazolam HCl 2 mg/2 ml Vial ONE (07:19)
[2020-04-06 07:20] LABS: Anion Gap 11 mmol/L (10-20); BUN (Urea Nitrogen) 21 mg/dL (9.8-20.1); Calc. Creatinine Clearance 61 mL/min (70-130); Calcium 8.9 mg/dL (7.8-10.44); Carbon Dioxide 29 mmol/L (23-31); Chloride 103 mmol/L (98-107); Estimated GFR-MDRD 77; Glucose 91 mg/dL (83-110); Potassium 3.5 mmol/L (3.5-5.1); Sodium 139 mmol/L (136-145)
[2020-04-06] MEDS ORDERED: Fentanyl 100 MCG/2 ML VIAL ONE (07:20)
[2020-04-06 09:03] LABS: #Basophils 0.1 thou/uL (0.0-0.2); #Eosinphils 0.1 thou/uL (0.0-0.7); #Lymphocytes 2.2 thou/uL (1.20-3.40); #Monocytes 0.7 thou/uL (0.11-0.59); #Neutrophils 2.8 thou/uL (1.40-6.50); %Basophils 1.5 % (0.0-1.0); %Eosinophils 1.1 % (0.0-10.0); %Lymphocytes 37.7 % (21.0-51.0); %Monocytes 11.4 % (0.0-10.0); %Neutrophils 48.3 % (42.0-75.0); Hemoglobin 13.3 g/dL (12.0-16.0); Mean Corpuscular HGB CONC 34.5 g/dL (32.0-36.0); Mean Corpuscular Hemoglobin 32.7 pg (27.0-31.0); Mean Platelet Volume 6.5 fL (7.4-10.4); Platelet Count 329 thou/uL (130-400); RBC Distribution Width 12.2 % (11.5-14.5); Red Blood Cell (RBC) Count 4.05 mill/uL (4.20-5.40); White Blood Cell (WBC) Count 5.8 thou/uL (4.8-10.8)
--- NOTE | 2020-04-06 09:34 | RAD ---
RADIOGRAPH CHEST 1 VIEW: DATE: 04/06/2020 HISTORY: 79-year-old female status post pacemaker placement COMPARISON: 03/10/2020 FINDINGS: The thoracic aorta is tortuous and ectatic. There is no evidence of airspace density, pulmonary edema , or pneumothorax. The lateral costophrenic angles are not effaced. No cardiomegaly. There is a new generator overlying the left lateral upper chest with 2 leads, one tip overlying expec lucy location of right atrial appendage, and the other overlying expected region of right ventricle. IMPRESSION: 1) No acute pulmonary findings. 2) ectasia of thoracic aorta. 3) interval placement of new transvenous permanent pacemaker, without pneumothorax.
[2020-04-06] MEDS ORDERED: Acetaminophen/Codeine 30-300mg Tablet ONE (11:35)
--- NOTE | 2020-04-07 13:55 | CCLSPC ---
PROCEDURE: Dual-chamber pacemaker insertion. INDICATION: 6-second pause. DESCRIPTION OF THE PROCEDURE: The patient was brought to the cardiac laborer. The left subclavian area was prepped and draped. She was given 1 mg of Versed and 25 mg of fentanyl intravenously. The 25 mg of fentanyl was repeated once during the procedure for a total of 1 hour and 10 minutes of continuous moderate conscious sedation with appropriate monitoring. 1% Lidocaine was infiltrated to the left subclavian area. A J-wire was placed into the left subclavian vein. Pacemaker pocket was manufactured using blunt and sharp dissection and electrocautery for hemostasis. The antibiotic solution-soaked gauze was placed into the pocket. A second J-wire was then placed into the left subclavian vein. Using 7-Nepali peel-away sheath, the atrial and ventricular leads were inserted. The ventricular lead was screwed into the right ventricular apex and atrial lead was screwed into the right atrium. Right ventricular lead, R-wave 3.3, impedance 775, threshold 0.5. Right atrial lead, P-wave 3.5, impedance 654, threshold 2.1. Later in the case, the threshold had dropped to 0.75 V. The tabs on the suture tie-downs were removed, and both leads were secured in place with two sutures of 0 silk. The antibiotic solution-soaked gauze was removed from the pocket, and this was irrigated with copious amounts of antibiotic solution. The leads were attached to the pacemaker generator. This was placed into the pocket and secured in place with one suture of 0 silk. Incision was then closed using two layers of running 3-0 Vicryl, one layer of running 4-0 Vicryl. Dermabond was placed on the incision. The patient tolerated the procedure well. Job ID: [id number] [facility]
--- NOTE | 2020-04-08 16:51 | EKG ---
Test Reason : POST PACEMAKER Blood Pressure : / mmHG Vent. Rate : 060 BPM Atrial Rate : 060 BPM P-R Int : 148 ms QRS Dur : 094 ms QT Int : 422 ms P-R-T Axes : 041 -22 023 degrees QTc Int : 422 ms Atrial paced ventriulclar sensed rhythm Moderate voltage criteria for LVH, may be normal variant Inferior infarct (cited on or before 10-MAR-2020) Abnormal ECG When compared with ECG of 12-MAR-2020 15:41, Vent. rate has decreased BY [address] Rigoberto CALVIN ([id number]) on 04/08/2020 4:50:49 PM Referred By: ED Confirmed By:DR. Rigoberto CALVIN
== END 2020-04-06 15:02 | disposition home or self-care (01) ==
LOC: CCL 06:04
PROVIDERS: ATTEND Internal Medicine Cardiovascular Disease
PROC: 0JH606Z Insertion of Pacemaker, Dual Chamber into Chest Subcutaneous Tissue and Fascia, Open Approach (ICD-10-PCS; principal; 2020-04-06)
PROC: 02H63JZ Insertion of Pacemaker Lead into Right Atrium, Percutaneous Approach (ICD-10-PCS; 2020-04-06)
PROC: 02HK3JZ Insertion of Pacemaker Lead into Right Ventricle, Percutaneous Approach (ICD-10-PCS; 2020-04-06)
DX: I49.5 Sick sinus syndrome (principal); I45.5 Other specified heart block; I47.1 Supraventricular tachycardia; I35.0 Nonrheumatic aortic (valve) stenosis; I10 Essential (primary) hypertension; E78.00 Pure hypercholesterolemia, unspecified; I25.10 Atherosclerotic heart disease of native coronary artery without angina pectoris; E03.9 Hypothyroidism, unspecified; Z79.82 Long term (current) use of aspirin; Z79.899 Other long term (current) drug therapy; Z88.8 Allergy status to other drugs, medicaments and biological substances
CPT/HCPCS: 33249; 36415; 71045; 80048; 85025; 93005; 93798; 99152; 99153; C1785; C1898; J0690; J1580; J2001; J2250; J3010

== ENCOUNTER 2021-04-10 17:09 | Emergency (ER) | payer MEDICARE, BC ==
[2021-04-10] MEDS ORDERED: Morphine 4 MG/ML VIAL ONE (17:37)
[2021-04-10] MEDS ORDERED: Ondansetron PF 4 MG/2 ML Vial ONE (17:37)
[2021-04-10 18:14] LABS: #Basophils 0.1 thou/uL (0.0-0.2); #Eosinphils 0.2 thou/uL (0.0-0.7); #Lymphocytes 2.6 thou/uL (1.20-3.40); #Neutrophils 7.7 thou/uL (1.40-6.50); %Basophils 0.6 % (0.0-1.0); %Eosinophils 1.4 % (0.0-10.0); %Lymphocytes 22.6 % (21.0-51.0); %Monocytes 8.4 % (0.0-10.0); Hemoglobin 15.2 g/dL (12.0-16.0); Mean Corpuscular HGB CONC 35.9 g/dL (32.0-36.0); Mean Corpuscular Volume 94.6 fL (78.0-98.0); Mean Platelet Volume 6.1 fL (7.4-10.4); Platelet Count 299 thou/uL (130-400); RBC Distribution Width 11.3 % (11.5-14.5); Red Blood Cell (RBC) Count 4.48 mill/uL (4.20-5.40); White Blood Cell (WBC) Count 11.4 thou/uL (4.8-10.8)
[2021-04-10 18:36] LABS: ALT (SGPT) 22 U/L (8-55); AST (SGOT) 22 U/L (5-34); Albumin 3.8 g/dL (3.4-4.8); Alkaline Phosphatase 61 U/L (40-110); Anion Gap 17 mmol/L (10-20); BUN (Urea Nitrogen) 25 mg/dL (9.8-20.1); Bilirubin, Total 0.6 mg/dL (0.2-1.2); Calc. Creatinine Clearance 0 mL/min (70-130); Carbon Dioxide 23 mmol/L (23-31); Chloride 99 mmol/L (98-107); Globulin 3.3 g/dL (2.4-3.5); Glucose 101 mg/dL (83-110); Potassium 3.8 mmol/L (3.5-5.1); Protein, Total 7.1 g/dL (5.8-8.1); Sodium 135 mmol/L (136-145)
== END 2021-04-10 20:24 | disposition home or self-care (01) ==
LOC: ERS 17:09
DX: S42.021A Displaced fracture of shaft of right clavicle, initial encounter for closed fracture (principal); S00.83XA Contusion of other part of head, initial encounter; M81.0 Age-related osteoporosis without current pathological fracture; I10 Essential (primary) hypertension; E03.9 Hypothyroidism, unspecified; E78.5 Hyperlipidemia, unspecified; W10.9XXA Fall (on) (from) unspecified stairs and steps, initial encounter; Y93.01 Activity, walking, marching and hiking; Z79.82 Long term (current) use of aspirin; Z79.899 Other long term (current) drug therapy
CPT/HCPCS: 36415; 70450; 80053; 84484; 85025; 93005; 96374; 96375; J2270; J2405

== ENCOUNTER 2024-05-25 14:51 | Outpatient (CLI) | payer MEDICARE | END 2024-05-25 14:52 | disposition home or self-care (01) | LOC: BICMAMMO 14:51 | PROVIDERS: ATTEND Internal Medicine | DX: M80.00XA Age-related osteoporosis with current pathological fracture, unspecified site, initial encounter for fracture (principal); M85.89 Other specified disorders of bone density and structure, multiple sites | CPT/HCPCS: 77080 ==